=== PATIENT | female | born 1990 | race Caucasian/White ===

== ENCOUNTER → 2017-03-29 | Outpatient (CLI) | payer OTHER ==
[~2017-03-29] MED LIST: OXYC-12 PO; PREN1TAB39 PO
[2017-03-29 10:00] LABS: URINE CREATININE FOR RATIO 40 MG/DL (30-125); URINE PROTEIN FOR RATIO ONLY < 6 MG/DL (6-12)
== END ==
LOC: LABNPT 09:39
PROVIDERS: ATTEND Obstetrics & Gynecology
DX: O14.03 Mild to moderate pre-eclampsia, third trimester (principal)
CPT/HCPCS: 82570; 84156

== ENCOUNTER 2018-06-15 17:10 | Emergency (ER) | payer SELFPAY ==
[~2018-06-15] VITALS: Ht 160 cm; Wt 61.2 kg
[~2018-06-15 17:10] MED LIST changes: +DOCU100C37 PO; +IBUP-1780 PO; +OXYC-465 PO
--- OUTSIDE RECORDS SUMMARY | 2018-06-15 17:45 | XMS REPORT ---
Author Author EVER BELL Organization [facility] Address [address] [place] [address] Care Team Providers Care Vp Customer Service Name Role Phone EVER BELL Unavailable PROBLEMS Type Condition ICD9-CM Code [id number] Code Onset Dates Condition Status SNOMED Code Problem Hypertriglyceridemia without hypercholesterolemia E78.1 Active 399267580 Problem Attention deficit hyperactivity disorder (ADHD), unspecified ADHD type F90.9 Active 856214833 Problem Seasonal allergies J30.2 Active 879056677 Problem Elevated liver enzymes R74.8 Active 027734185 Problem Anxiety F41.9 Active 18999019 Problem Attention deficit hyperactivity disorder (ADHD), combined type F90.2 Active 60596721 Problem Overweight (BMI 25.0-29.9) E66.3 Active 465287370 ALLERGIES No Information ENCOUNTERS Encounter Location Date Diagnosis [facility] [address] [address] Apr, [facility] [address] [place] [address]061[address] Apr, Attention deficit hyperactivity disorder (ADHD), combined type F90.2 [facility] [address] [place] [address] Feb, Attention deficit hyperactivity disorder (ADHD), combined type F90.2 [facility] [address] [place] [address] Feb, Attention deficit hyperactivity disorder (ADHD), combined type F90.2 [facility] [address] [place] [address]87- [address]237 Feb, [facility] [address] [place] [address] 48320- 4286 Jan, Attention deficit hyperactivity disorder (ADHD), combined type F90.2 [facility] [address] [address] Jan, Attention deficit hyperactivity disorder (ADHD), combined type F90.2 [facility] [address] [address] Dec, Attention deficit hyperactivity disorder (ADHD), combined type F90.2 [facility] [address] [address] Nov, Attention deficit hyperactivity disorder (ADHD), combined type F90.2 [facility] [address] [address] Nov, [facility] [id number] [address] Nov, [facility] [id number] [address] Nov, Attention deficit hyperactivity disorder (ADHD), unspecified ADHD type F90.9 [facility] [address] [address] 12 Oct, 2017 Sore throat J02.9 and Seasonal allergies J30.2 [facility] [address] [address] 11 Oct, 2017 Attention deficit hyperactivity disorder (ADHD), unspecified ADHD type F90.9 and Viral pharyngitis J02.9 [facility] [address] [address] Oct, Attention deficit hyperactivity disorder (ADHD), combined type F90.2 [facility] [address] [address] Sep, Attention deficit hyperactivity disorder (ADHD), combined type F90.2 [facility] [address] [address] Aug, Attention deficit hyperactivity disorder (ADHD), combined type F90.2 [facility] [id number] [address] Jul, Attention deficit hyperactivity disorder (ADHD), combined type F90.2 [facility] [id number] [place] [address]397[address] Jul, Attention deficit hyperactivity disorder (ADHD), combined type F90.2 ; Hypertriglyceridemia without hypercholesterolemia E78.1 ; Anxiety F41.9 ; Elevated liver enzymes R74.8 and Overweight (BMI 25.0-29.9) E66.3 [facility] [id number] [place] [address] 45442[address] 68[address] June, Attention deficit hyperactivity disorder (ADHD), combined type F90.2 [facility] [id number] [place] [address] 12738- 68[address] May, Attention deficit hyperactivity disorder (ADHD), combined type F90.2 and Routine health maintenance Z00.00 [facility] [id number] [place] [address] 56087[address] 9[address] Oct, [facility] [id number] [place] [address] 25527- 4559 Oct, Attention deficit hyperactivity disorder (ADHD), combined type F90.2 [facility] [id number] [address] Sep, Attention deficit hyperactivity disorder (ADHD), combined type F90.2 [facility] [address] [address] Aug, Attention deficit hyperactivity disorder (ADHD), combined type F90.2 [facility] [address] [address] 67[address] Jul, Attention deficit hyperactivity disorder (ADHD), combined type F90.2 [facility] [address] [address] June, Attention deficit hyperactivity disorder (ADHD), combined type F90.2 [facility] [id number] [place] [address] 62922- 3[address] June, Attention deficit hyperactivity disorder (ADHD), combined type F90.2 [facility] [id number] [place] [address] 77526- 0449 May, Attention deficit hyperactivity disorder (ADHD), combined type F90.2 [facility] [id number] [place] [address] 59459- 3258 May, Encounter for test, result unknown Z32.00 [facility] [address] [address] Apr, Attention deficit hyperactivity disorder (ADHD), combined type F90.2 [facility] [address] [address] Mar, Attention deficit hyperactivity disorder (ADHD), combined type F90.2 [facility] [id number] [place] [address] 39921- 7318 Feb, Attention deficit hyperactivity disorder (ADHD), combined type F90.2 [facility] [id number] [place] [address] 23274- 0036 Jan, [facility] [address] [address] Jan, [facility] [id number] [place] [address] 92503- 9217 Dec, [facility] [id number] [place] [address]462 [address] Dec, Acute middle ear effusion, right H65.191 [facility] [id number] [place] [address] 29109- 2475 Nov, [facility] [address] [address] Nov, Sore throat J02.9 [facility] [id number] [place] [address]75 [address]4 Nov, Right otitis media, unspecified chronicity, unspecified otitis media type H66.91 [place] [id number] [place] [address] 74499- 3240 Nov, Attention deficit hyperactivity disorder (ADHD), combined type F90.2 and Anxiety F41.[address] [address] Oct, Attention deficit hyperactivity disorder (ADHD), combined type F90.2 and High risk medication use Z79.[address] [address]- [address] Oct, Attention deficit hyperactivity disorder (ADHD), combined type F90.2 [facility] [address] [address] Sep, Seasonal allergic rhinitis due to pollen J30.[address] [address] Sep, Routine health maintenance Z00.00 ; Attention deficit hyperactivity disorder (ADHD), combined type F90.2 ; Anxiety F41.9 and Controlled substance agreement signed Z79.899 [facility] [place] [address] [address] Aug, Mild intermittent asthma without complication J45.20 [facility] [address] [address] Aug, Bronchitis J40 [facility] [address] [address] May, Other pruritus L29.8 and Exposure to strep throat Z20.[address] [address]99 Jan, [address] [address]85 Jan, [address] [address] Aug, [facility] [address] [facility] [id number] [address] June, [facility] [address] [facility] [id number] [address] Apr, [facility] [address] [facility] [id number] [address] Dec, [facility] [address] [facility] [id number] [place] [address] Dec, [facility] [address] [facility] [id number] [place] [address] Oct, IMMUNIZATIONS No Known Immunizations SOCIAL HISTORY Never Assessed REASON FOR VISIT Controlled med refill PLAN OF CARE VITAL SIGNS MEDICATIONS Medication Instructions Dosage Frequency Start Date End Date Duration Status Adderall 10 mg Orally twice a day 1 tablet in the morning then one tablet around noon or 1 pm. 12Apr, 28 days Active RESULTS No Results PROCEDURES No Known procedures INSTRUCTIONS MEDICATIONS ADMINISTERED No Known Medications MEDICAL (GENERAL) HISTORY Type Description Date Medical History ADHD Medical History Asthma- allergy induced Medical History Seasonal allergies Surgical History No know Surgical history Hospitalization History labor and delivery x 1 2011 Hospitalization History labor and delivery 2018
--- OUTSIDE RECORDS SUMMARY | 2018-06-15 17:46 | XMS REPORT ---
Author Author DEEJAY MANCUSO Organization [facility] Address [address] [place] [address] Care Team Providers Care Crew Boss Name Role Phone DEEJAY MANCUSO Unavailable PROBLEMS Type Condition ICD9-CM Code FVJ33-HD Code Onset Dates Condition Status SNOMED Code Problem Hypertriglyceridemia without hypercholesterolemia E78.1 Active 142862127 Problem Seasonal allergies J30.2 Active 101395198 Problem Attention deficit hyperactivity disorder (ADHD), unspecified ADHD type F90.9 Active 767156149 Problem Anxiety F41.9 Active 43763309 Problem Elevated liver enzymes R74.8 Active 523280263 Problem Overweight (BMI 25.0-29.9) E66.3 Active 301279570 Problem Attention deficit hyperactivity disorder (ADHD), combined type F90.2 Active 70868031 ALLERGIES No Information ENCOUNTERS Encounter Location Date Diagnosis [facility] [id number] [place] [address] 16987- 4412 Dec, Attention deficit hyperactivity disorder (ADHD), combined type F90.2 [facility] [id number] [place] [address] 73071- 2002 Nov, Attention deficit hyperactivity disorder (ADHD), combined type F90.2 [facility] [id number] [place] [address] 51997- 0919 Nov, [facility] [id number] [place] [address] 58714- 1500 Nov, [facility] [id number] [place] [address] 26901- 2065 Nov, Attention deficit hyperactivity disorder (ADHD), unspecified ADHD type F90.9 [facility] [id number] [place] [address] 81768 -[address]888 Oct, Sore throat J02.9 and Seasonal allergies J30.2 [facility] [address] [place] [address] 78966- 1689 11 Oct, 2017 Attention deficit hyperactivity disorder (ADHD), unspecified ADHD type F90.9 and Viral pharyngitis J02.9 [facility] [id number] [place] [address] 61941- 4417 10 Oct, 2017 Attention deficit hyperactivity disorder (ADHD), combined type F90.2 [facility] [id number] [place] [address] 20369- 0322 Sep, Attention deficit hyperactivity disorder (ADHD), combined type F90.2 [place] [id number] [place] [address] 73832- 3507 Aug, Attention deficit hyperactivity disorder (ADHD), combined type F90.2 [place] [id number] [place] [address] 92970- 1399 Jul, Attention deficit hyperactivity disorder (ADHD), combined type F90.2 [place] [id number] [place] [address] 14912- 8805 Jul, Attention deficit hyperactivity disorder (ADHD), combined type F90.2 ; Hypertriglyceridemia without hypercholesterolemia E78.1 ; Anxiety F41.9 ; Elevated liver enzymes R74.8 and Overweight (BMI 25.0-29.9) E66.3 [place] [id number] [place] [address] 49067- 5417 June, Attention deficit hyperactivity disorder (ADHD), combined type F90.2 [place] [address] [place] [address] 36511- 4445 May, Attention deficit hyperactivity disorder (ADHD), combined type F90.2 and Routine health maintenance Z00.00 [facility] [id number] [place] [address] 90372- 2824 Oct, [place] [id number] [place] [address] 49944- 4090 Oct, Attention deficit hyperactivity disorder (ADHD), combined type F90.2 [facility] [address] [address] Sep, Attention deficit hyperactivity disorder (ADHD), combined type F90.2 [facility] [address] [address]227 Aug, Attention deficit hyperactivity disorder (ADHD), combined type F90.2 [facility] [id number] [place] [address] Jul, Attention deficit hyperactivity disorder (ADHD), combined type F90.2 [facility] [id number] [place] [address]- 0949 June, Attention deficit hyperactivity disorder (ADHD), combined type F90.2 [facility] [address] [address] June, Attention deficit hyperactivity disorder (ADHD), combined type F90.2 [facility] [address] [address]- 5748 May, Attention deficit hyperactivity disorder (ADHD), combined type F90.2 [facility] [address] [address]- 9[address] May, Encounter for test, result unknown Z32.00 [facility] [id number] [address]- 7[address] Apr, Attention deficit hyperactivity disorder (ADHD), combined type F90.2 [facility] [address] [address]- 6632 Mar, Attention deficit hyperactivity disorder (ADHD), combined type F90.2 [facility] [address] [address]- 8458 Feb, Attention deficit hyperactivity disorder (ADHD), combined type F90.2 [facility] [address] [address]- 5865 Jan, [facility] [address] [place] [address] 37872- 2752 Jan, [place] [id number] [place] [address] 46434- 7823 Dec, [facility] [id number] [place] [address] 76955 -6631 Dec, Acute middle ear effusion, right H65.191 [place] [id number] [place] [address] 36441- 9350 Nov, [facility] [place] [address] [address] Nov, Sore throat J02.9 [facility] [place] [id number] [place] [address] 42776 -9212 Nov, Right otitis media, unspecified chronicity, unspecified otitis media type H66.91 [place] [id number] [place] [address] 27695- 4250 Nov, Attention deficit hyperactivity disorder (ADHD), combined type F90.2 and Anxiety F41.9 [place] [id number] [place] [address] 53568- 7335 Oct, Attention deficit hyperactivity disorder (ADHD), combined type F90.2 and High risk medication use Z79.899 [place] [id number] [place] [address] 13540- 3003 Oct, Attention deficit hyperactivity disorder (ADHD), combined type F90.2 [facility] N [address] [place] [address] 33195 -6743 Sep, Seasonal allergic rhinitis due to pollen J30.1 [place] [address] [place] [address] 85338- 0347 Sep, Routine health maintenance Z00.00 ; Attention deficit hyperactivity disorder (ADHD), combined type F90.2 ; Anxiety F41.9 and Controlled substance agreement signed Z79.899 [facility] [address] [place] [address] 11959 -3753 Aug, Mild intermittent asthma without complication J45.20 [facility] [id number] [place] [address] 49641 -5018 Aug, Bronchitis J40 [facility] [id number] [place] [address] 88583 -6852 May, Other pruritus L29.8 and Exposure to strep throat Z20.818 [facility] [id number] [place] [address] 83499- 3231 Jan, [facility] [address] 37[address]- 8330 Jan, [facility] [id number] [place] [address] 09760- 0228 Aug, [facility] [id number] [place] [address] 47051- 6048 June, [facility] [id number] [place] [address] 14852- 8235 Apr, [facility] [id number] [place] [address] 61072- 7054 Dec, [facility] [id number] [place] [address] 70060- 9494 Dec, [facility] [id number] [place] [address] 92167- 5230 Oct, IMMUNIZATIONS No Known Immunizations SOCIAL HISTORY Never Assessed REASON FOR VISIT Controlled 12/21 PLAN OF CARE VITAL SIGNS MEDICATIONS Medication Instructions Dosage Frequency Start Date End Date Duration Status Adderall 10 mg Orally twice a day 1 tablet in the morning then one tablet around noon or 1 pm. 12h Dec, 28 days Active RESULTS No Results PROCEDURES No Known procedures INSTRUCTIONS MEDICATIONS ADMINISTERED No Known Medications MEDICAL (GENERAL) HISTORY Type Description Date Medical History ADHD Medical History Asthma- allergy induced Medical History Seasonal allergies Surgical History No know Surgical history Hospitalization History labor and delivery x 1 2011 Hospitalization History labor and delivery 2018
--- OUTSIDE RECORDS SUMMARY | 2018-06-15 17:46 | XMS REPORT ---
Author Author [facility] Address [address] [place] [address] Care Team Providers Care Program Mgr Name Role Phone CHELYEvans KEITH Unavailable PROBLEMS Type Condition ICD9-CM Code [id number] Code Onset Dates Condition Status SNOMED Code Problem Hypertriglyceridemia without hypercholesterolemia E78.1 Active 155460583 Problem Seasonal allergies J30.2 Active 587877386 Problem Attention deficit hyperactivity disorder (ADHD), unspecified ADHD type F90.9 Active 278377852 Problem Anxiety F41.9 Active 34133760 Problem Elevated liver enzymes R74.8 Active 172413958 Problem Overweight (BMI 25.0-29.9) E66.3 Active 061493592 Problem Attention deficit hyperactivity disorder (ADHD), combined type F90.2 Active 30651893 ALLERGIES No Information ENCOUNTERS Encounter Location Date Diagnosis [facility] [address] [address] Nov, [facility] [address] [id number] [place] [address]181[address] 6872 Nov, [facility] [id number] [place] [address] 8[address]19- 6801 Nov, [facility] [address] [address] Nov, Attention deficit hyperactivity disorder (ADHD), unspecified ADHD type F90.9 [facility] [address] [address] Oct, Sore throat J02.9 and Seasonal allergies J30.2 [facility] [id number] [place] [address] 25819- 0638 Oct, Attention deficit hyperactivity disorder (ADHD), unspecified ADHD type F90.9 and Viral pharyngitis J02.9 [facility] [id number] [address] 10 Oct, 2017 Attention deficit hyperactivity disorder (ADHD), combined type F90.2 [facility] [id number] [address] Sep, Attention deficit hyperactivity disorder (ADHD), combined type F90.2 [facility] [id number] [place] [address] 24498- 1012 Aug, Attention deficit hyperactivity disorder (ADHD), combined type F90.2 [facility] [id number] [place] [address] 46246- 3559 Jul, Attention deficit hyperactivity disorder (ADHD), combined type F90.2 [facility] [id number] [address] Jul, Attention deficit hyperactivity disorder (ADHD), combined type F90.2 ; Hypertriglyceridemia without hypercholesterolemia E78.1 ; Anxiety F41.9 ; Elevated liver enzymes R74.8 and Overweight (BMI 25.0-29.9) E66.3 [facility] [id number] [place] [address] 6[address] June, Attention deficit hyperactivity disorder (ADHD), combined type F90.2 [facility] [address] [address] May, Attention deficit hyperactivity disorder (ADHD), combined type F90.2 and Routine health maintenance Z00.00 [facility] [id number] [address] Oct, [facility] [id number] [place] [address] 17012- 8597 18 Oct, 2016 Attention deficit hyperactivity disorder (ADHD), combined type F90.2 [facility] [id number] [address] Sep, Attention deficit hyperactivity disorder (ADHD), combined type F90.2 [facility] [id number] [address] Aug, Attention deficit hyperactivity disorder (ADHD), combined type F90.2 [facility] [id number] [place] [address] Jul, Attention deficit hyperactivity disorder (ADHD), combined type F90.2 [facility] [id number] [address] June, Attention deficit hyperactivity disorder (ADHD), combined type F90.2 [facility] [id number] [address] June, Attention deficit hyperactivity disorder (ADHD), combined type F90.2 [facility] [id number] [address] May, Attention deficit hyperactivity disorder (ADHD), combined type F90.2 [facility] [id number], [place] [address] May, Encounter for test, result unknown Z32.00 [facility] [id number] [address] Apr, Attention deficit hyperactivity disorder (ADHD), combined type F90.2 [facility] [id number], [place] [address] 275[address] Mar, Attention deficit hyperactivity disorder (ADHD), combined type F90.2 [facility] [id number], [place] [address] Feb, Attention deficit hyperactivity disorder (ADHD), combined type F90.2 [facility] [id number], [place] [address] Jan, [facility] [id number], [place] [address] Jan, [facility] [id number] [place] [address] 41457- 8221 Dec, [facility] [place] [id number] [place] [address]99[address]14 Dec, Acute middle ear effusion, right H65.[address] [place] [id number] [place] [address] 41644- 6116 Nov, [facility] [address] [address] Nov, Sore throat J02.9 [facility] [place] [id number] [place] [address]16 -[address]24 Nov, Right otitis media, unspecified chronicity, unspecified otitis media type H66.91 [place] [id number] [place] [address] 43409- 4853 Nov, Attention deficit hyperactivity disorder (ADHD), combined type F90.2 and Anxiety F41.9 [place] [id number] [place] [address] 24005- 5656 Oct, Attention deficit hyperactivity disorder (ADHD), combined type F90.2 and High risk medication use Z79.899 [place] [id number] [place] [address] 05339- 4696 Oct, Attention deficit hyperactivity disorder (ADHD), combined type F90.2 [facility] [place] [id number] [place] [address]214 -3798 Sep, Seasonal allergic rhinitis due to pollen J30.1 [place] [id number] [place] [address] 87208- 3549 Sep, Routine health maintenance Z00.00 ; Attention deficit hyperactivity disorder (ADHD), combined type F90.2 ; Anxiety F41.9 and Controlled substance agreement signed Z79.899 [facility] [place] [id number] [place] [address] Aug, Mild intermittent asthma without complication J45.20 [facility] [id number], [place] [address] Aug, Bronchitis J40 [facility] [address], [place] [address] May, Other pruritus L29.8 and Exposure to strep throat Z20.818 [facility] [address], [place] [address] Jan, [facility] [id number], [place] [address] 28[address] Jan, [facility] [id number], [place] [address] 3[address] Aug, [facility] [id number] [place] [address] 20311- 8568 June, [facility] [id number] [place] [address] 60088- 2694 Apr, [facility] [id number], [place] [address]- 56[address] Dec, [facility] [id number], [place] [address]- 6[address] Dec, [facility] [id number], [place] [address]- 9170 Oct, IMMUNIZATIONS No Known Immunizations SOCIAL HISTORY Never Assessed REASON FOR VISIT Prior Authorization Request PLAN OF CARE VITAL SIGNS MEDICATIONS Unknown Medications RESULTS No Results PROCEDURES No Known procedures INSTRUCTIONS MEDICATIONS ADMINISTERED No Known Medications MEDICAL (GENERAL) HISTORY Type Description Date Medical History ADHD Medical History Asthma- allergy induced Medical History Seasonal allergies Surgical History No know Surgical history Hospitalization History labor and delivery x 1 2011 Hospitalization History labor and delivery 2018
--- OUTSIDE RECORDS SUMMARY | 2018-06-15 17:46 | XMS REPORT ---
Author Author DEEJAY MANCUSO Organization [facility] Address [address] [place] [address] Care Team Providers Care Sports Commentator Name Role Phone DEEJAY MANCUSO Unavailable PROBLEMS Type Condition ICD9-CM Code [id number] Code Onset Dates Condition Status SNOMED Code Problem Hypertriglyceridemia without hypercholesterolemia E78.1 Active 727082152 Problem Seasonal allergies J30.2 Active 089743675 Problem Attention deficit hyperactivity disorder (ADHD), unspecified ADHD type F90.9 Active 792806388 Problem Anxiety F41.9 Active 02149975 Problem Elevated liver enzymes R74.8 Active 620529016 Problem Overweight (BMI 25.0-29.9) E66.3 Active 379472005 Problem Attention deficit hyperactivity disorder (ADHD), combined type F90.2 Active 25128293 ALLERGIES Substance Reaction Event Type Date Status Penicillin V Potassium rash Drug Allergy Oct, Active ENCOUNTERS Encounter Location Date Diagnosis [facility] [id number] [place] [address] 12 Oct, 2017 Sore throat J02.9 and Seasonal allergies J30.2 [facility] [id number] [place] [address] 99996- 2791 Oct, Attention deficit hyperactivity disorder (ADHD), unspecified ADHD type F90.9 and Viral pharyngitis J02.9 [facility] [address] [place] [address] 39411- 5271 Oct, Attention deficit hyperactivity disorder (ADHD), combined type F90.2 [facility] [address] [place] [address] 09936- 0487 Sep, Attention deficit hyperactivity disorder (ADHD), combined type F90.2 [facility] [id number] [place] [address] 26784- 5775 Aug, Attention deficit hyperactivity disorder (ADHD), combined type F90.2 [facility] [address] [address] 3847 Jul, Attention deficit hyperactivity disorder (ADHD), combined type F90.2 [facility] [address] [address] 8612 Jul, Attention deficit hyperactivity disorder (ADHD), combined type F90.2 ; Hypertriglyceridemia without hypercholesterolemia E78.1 ; Anxiety F41.9 ; Elevated liver enzymes R74.8 and Overweight (BMI 25.0-29.9) E66.3 [facility] [id number] [place] [address] 20471- 5155 June, Attention deficit hyperactivity disorder (ADHD), combined type F90.2 [facility] [address] [address]- 2[address] May, Attention deficit hyperactivity disorder (ADHD), combined type F90.2 and Routine health maintenance Z00.00 [facility] [address] [address]- 45[address] Oct, [facility] [id number] [address]- 1513 Oct, Attention deficit hyperactivity disorder (ADHD), combined type F90.2 [facility] [address] [address]- 3465 Sep, Attention deficit hyperactivity disorder (ADHD), combined type F90.2 [facility] [address] [address]- 5563 Aug, Attention deficit hyperactivity disorder (ADHD), combined type F90.2 [facility] [address] [address]- 2353 Jul, Attention deficit hyperactivity disorder (ADHD), combined type F90.2 [facility] [address] [address]- 0[address] June, Attention deficit hyperactivity disorder (ADHD), combined type F90.2 [facility] [id number] [place] [address] 00143- 2707 June, Attention deficit hyperactivity disorder (ADHD), combined type F90.2 [facility] [id number] [place] [address] 86623- 5540 May, Attention deficit hyperactivity disorder (ADHD), combined type F90.2 [facility] [id number] [place] [address] 01643- 7283 May, Encounter for test, result unknown Z32.00 [place] [address] [address]- [address] Apr, Attention deficit hyperactivity disorder (ADHD), combined type F90.2 [facility] [id number] [place] [address] 36614- 8923 Mar, Attention deficit hyperactivity disorder (ADHD), combined type F90.2 [facility] [id number] [place] [address] 51558- 6014 Feb, Attention deficit hyperactivity disorder (ADHD), combined type F90.2 [facility] [id number] [place] [address] 30365- 5164 Jan, [facility] [id number] [place] [address] 53676- 4391 Jan, [facility] [id number] [place] [address] 32059- 3123 Dec, [facility] [id number] [place] [address] 60769 -8193 Dec, Acute middle ear effusion, right H65.191 [facility] [id number] [place] [address] 66944- 6803 Nov, [facility] [id number] [place] [address] 42328 -7434 Nov, Sore throat J02.9 [facility] [place] [id number] [place] [address] 14937 -8535 Nov, Right otitis media, unspecified chronicity, unspecified otitis media type H66.91 [place] [address] [address]- 9072 Nov, Attention deficit hyperactivity disorder (ADHD), combined type F90.2 and Anxiety F41.[address] [address]- [address] Oct, Attention deficit hyperactivity disorder (ADHD), combined type F90.2 and High risk medication use Z79.[address] 24353- 4973 Oct, Attention deficit hyperactivity disorder (ADHD), combined type F90.2 [facility] [address] [address] Sep, Seasonal allergic rhinitis due to pollen J30.[address] 75359- 3944 Sep, Routine health maintenance Z00.00 ; Attention deficit hyperactivity disorder (ADHD), combined type F90.2 ; Anxiety F41.9 and Controlled substance agreement signed Z79.899 [facility] [address] [address] Aug, Mild intermittent asthma without complication J45.20 [facility] [address] [address] Aug, Bronchitis J40 [facility] [address] [address] -[address]10 May, Other pruritus L29.8 and Exposure to strep throat Z20.[address] 97362- 6383 Jan, [address] 618[address]- 68[address] Jan, [facility] [address] [facility] [id number] [place] [address]- 6326 Aug, [facility] [address] [facility] [id number] [address] 2546 June, [facility] [address] [facility] [id number] [address] 2546 Apr, [facility] [address] [facility] [id number] [address]- 2336 Dec, [facility] [address] [facility] [id number] [place] [address]- 4166 Dec, [facility] [address] [facility] [id number] [place] [address]- 8056 Oct, IMMUNIZATIONS No Known Immunizations SOCIAL HISTORY Never Assessed REASON FOR VISIT Sore throat started 2 days ago [facility] PLAN OF CARE Activity Details Follow Up 1 Week, prn Reason:if symptoms worsen VITAL SIGNS Height 64 in 2017-10-27 Weight 140.4 lbs 2017-10-27 Temperature 98.1 degrees Fahrenheit 2017-10-27 Heart Rate 76 bpm 2017-10-27 Respiratory Rate 18 2017-10-27 BMI 24.10 kg/m2 2017-10-27 Blood pressure systolic 102 mmHg 2017-10-27 Blood pressure diastolic 64 mmHg 2017-10-27 MEDICATIONS Medication Instructions Dosage Frequency Start Date End Date Duration Status Fluticasone Propionate 50 MCG/ACT Nasally Once a day 1 spray in each nostril 24h Oct, 30 day(s) Active Adderall 10 mg Orally twice a day 1 tablet in the morning then one tablet around noon or 1 pm. 12h Oct, 28 days Active Albuterol Sulfate HFA 108 (90 Base) MCG/ACT Inhalation 4 times a day 2 puffs as needed 6h Aug, Active Claritin-D 24 Hour 10-240 MG Orally Once a day 1 tablet as needed 24h Oct, Oct, Active RESULTS Name Result Date Reference Range STREP A (IN HOUSE) 2017-10-27 STREP A negative Control + Lot # [id number] Exp date 2018-01-14 PROCEDURES Procedure Date Ordered Result Body Site STREP A ASSAY W/OPTIC Oct 27, 2017 INSTRUCTIONS MEDICATIONS ADMINISTERED No Known Medications MEDICAL (GENERAL) HISTORY Type Description Date Medical History ADHD Medical History Asthma- allergy induced Medical History Seasonal allergies Surgical History No know Surgical history Hospitalization History labor and delivery x 1 2012 Hospitalization History labor and delivery 2018
--- OUTSIDE RECORDS SUMMARY | 2018-06-15 17:46 | XMS REPORT ---
Author Author DEEJAY MANCUSO Organization [facility] Address [address] [place] [address] Care Team Providers Care Launderer Hand Name Role Phone DEEJAY MANCUSO Unavailable PROBLEMS Type Condition ICD9-CM Code OYQ30-RB Code Onset Dates Condition Status SNOMED Code Problem Hypertriglyceridemia without hypercholesterolemia E78.1 Active 971472437 Problem Seasonal allergies J30.2 Active 987479560 Problem Attention deficit hyperactivity disorder (ADHD), unspecified ADHD type F90.9 Active 306627574 Problem Anxiety F41.9 Active 54435768 Problem Elevated liver enzymes R74.8 Active 200465699 Problem Overweight (BMI 25.0-29.9) E66.3 Active 711976158 Problem Attention deficit hyperactivity disorder (ADHD), combined type F90.2 Active 04579347 ALLERGIES No Information ENCOUNTERS Encounter Location Date Diagnosis [facility] [id number] [place] [address] 48743- 3481 Jan, Attention deficit hyperactivity disorder (ADHD), combined type F90.2 [facility] [id number] [place] [address] 51677- 5109 Dec, Attention deficit hyperactivity disorder (ADHD), combined type F90.2 [facility] [id number] [place] [address] 99534- 5661 Nov, Attention deficit hyperactivity disorder (ADHD), combined type F90.2 [facility] [id number] [place] [address] 17957- 0634 Nov, [facility] [id number] [place] [address] 88502- 2497 Nov, [facility] [id number] [place] [address] 88178- 6876 Nov, Attention deficit hyperactivity disorder (ADHD), unspecified ADHD type F90.9 [facility] [address] [address] 12 Oct, 2017 Sore throat J02.9 and Seasonal allergies J30.2 [facility] [id number] [place] [address] 67167- 9039 11 Oct, 2017 Attention deficit hyperactivity disorder (ADHD), unspecified ADHD type F90.9 and Viral pharyngitis J02.9 [facility] [id number] [place] [address] 81160- 2928 10 Oct, 2017 Attention deficit hyperactivity disorder (ADHD), combined type F90.2 [facility] [id number] [place] [address] 35440- 9648 13 Sep, 2017 Attention deficit hyperactivity disorder (ADHD), combined type F90.2 [facility] [id number] [place] [address] 71191- 4553 16 Aug, 2017 Attention deficit hyperactivity disorder (ADHD), combined type F90.2 [facility] [id number] [place] [address] 66413- 7693 15 Jul, 2017 Attention deficit hyperactivity disorder (ADHD), combined type F90.2 [facility] [id number] [place] [address] 27247- 3472 12 Jul, 2017 Attention deficit hyperactivity disorder (ADHD), combined type F90.2 ; Hypertriglyceridemia without hypercholesterolemia E78.1 ; Anxiety F41.9 ; Elevated liver enzymes R74.8 and Overweight (BMI 25.0-29.9) E66.3 [facility] [address] [place] [address] 15204- 0824 June, Attention deficit hyperactivity disorder (ADHD), combined type F90.2 [facility] [id number] [place] [address] 06482- 2300 May, Attention deficit hyperactivity disorder (ADHD), combined type F90.2 and Routine health maintenance Z00.00 [facility] [id number] [address] 47[address] Oct, [facility] [address] [address] 18 Oct, 2016 Attention deficit hyperactivity disorder (ADHD), combined type F90.2 [facility] [address] [address] 4[address] 14 Sep, 2016 Attention deficit hyperactivity disorder (ADHD), combined type F90.2 [facility] [id number] [address] Aug, Attention deficit hyperactivity disorder (ADHD), combined type F90.2 [facility] [id number] [place] [address] 98011- 8841 Jul, Attention deficit hyperactivity disorder (ADHD), combined type F90.2 [facility] [address] [address] 7947 June, Attention deficit hyperactivity disorder (ADHD), combined type F90.2 [facility] [address] [address] June, Attention deficit hyperactivity disorder (ADHD), combined type F90.2 [facility] [address] [address] 2015 May, Attention deficit hyperactivity disorder (ADHD), combined type F90.2 [facility] [address] [address] 5[address] May, Encounter for test, result unknown Z32.00 [facility] [address] [address]15 Apr, Attention deficit hyperactivity disorder (ADHD), combined type F90.2 [facility] [address] [address] 1421 Mar, Attention deficit hyperactivity disorder (ADHD), combined type F90.2 [facility] [address] [address] 59[address] Feb, Attention deficit hyperactivity disorder (ADHD), combined type F90.2 [place] [id number] [place] [address] 97533- 1266 Jan, [facility] [id number] [place] [address] 36336- 8452 Jan, [place] [address] [address]- [address]122 Dec, [facility] [address] [address] Dec, Acute middle ear effusion, right H65.191 [place] [address] 23447- 2918 Nov, [facility] [place] [address] 84256 -2804 Nov, Sore throat J02.9 [facility] [place] [id number] [place] [address] 53318 -1500 Nov, Right otitis media, unspecified chronicity, unspecified otitis media type H66.91 [place] [id number] [place] [address] 16041- 4103 Nov, Attention deficit hyperactivity disorder (ADHD), combined type F90.2 and Anxiety F41.9 [place] [id number] [place] [address] 68747- 4105 Oct, Attention deficit hyperactivity disorder (ADHD), combined type F90.2 and High risk medication use Z79.899 [place] [id number] [place] [address] 96946- 3020 Oct, Attention deficit hyperactivity disorder (ADHD), combined type F90.2 [facility] [id number] [place] [address] 38875 -6787 Sep, Seasonal allergic rhinitis due to pollen J30.1 [place] [id number] [place] [address] 74835- 8995 Sep, Routine health maintenance Z00.00 ; Attention deficit hyperactivity disorder (ADHD), combined type F90.2 ; Anxiety F41.9 and Controlled substance agreement signed Z79.899 [facility] [id number] [place] [address] 44412 -7164 Aug, Mild intermittent asthma without complication J45.20 [facility] [address] [address] Aug, Bronchitis J40 [facility] [id number] [place] [address] 62200 -7208 May, Other pruritus L29.8 and Exposure to strep throat Z20.818 [facility] [id number] [place] [address] 93865- 4181 Jan, [place] [address] 92095- 0066 Jan, [facility] [id number] [place] [address] 03072- 9161 Aug, [place] [id number] [place] [address] 37482- 3903 June, [place] [id number] [place] [address] 43198- 0661 Apr, [place] [id number] [place] [address] 17178- 4173 Dec, [place] [id number] [place] [address] 88741- 4548 Dec, [place] [id number] [place] [address] [id number]- 8953 Oct, IMMUNIZATIONS No Known Immunizations SOCIAL HISTORY Never Assessed REASON FOR VISIT Controlled Refill 01/19 PLAN OF CARE VITAL SIGNS MEDICATIONS Medication Instructions Dosage Frequency Start Date End Date Duration Status Adderall 10 mg Orally twice a day 1 tablet in the morning then one tablet around noon or 1 pm. 12Jan, 28 days Active RESULTS No Results PROCEDURES No Known procedures INSTRUCTIONS MEDICATIONS ADMINISTERED No Known Medications MEDICAL (GENERAL) HISTORY Type Description Date Medical History ADHD Medical History Asthma- allergy induced Medical History Seasonal allergies Surgical History No know Surgical history Hospitalization History labor and delivery x 1 2012 Hospitalization History labor and delivery 2018
--- OUTSIDE RECORDS SUMMARY | 2018-06-15 17:46 | XMS REPORT ---
Author Author DEEJAY MANCUSO [facility] Address [address] [place] [address] Care Team Providers Care Squeegee Operator Name Role Phone DEEJAY MANCUSO Unavailable PROBLEMS Type Condition ICD9-CM Code UYM01-WH Code Onset Dates Condition Status SNOMED Code Problem Hypertriglyceridemia without hypercholesterolemia E78.1 Active 645381916 Problem Seasonal allergies J30.2 Active 288227748 Problem Attention deficit hyperactivity disorder (ADHD), unspecified ADHD type F90.9 Active 137473071 Problem Anxiety F41.9 Active 37739099 Problem Elevated liver enzymes R74.8 Active 575649466 Problem Overweight (BMI 25.0-29.9) E66.3 Active 075655911 Problem Attention deficit hyperactivity disorder (ADHD), combined type F90.2 Active 84976242 ALLERGIES Substance Reaction Event Type Date Status Penicillin V Potassium rash Drug Allergy Nov, Active ENCOUNTERS Encounter Location Date Diagnosis [facility] [address] [address] Nov, Attention deficit hyperactivity disorder (ADHD), combined type F90.2 [facility] [id number] [place] [address] 83994- 1109 Nov, [facility] [id number] [place] [address] 72788- 9239 Nov, [facility] [id number] [place] [address] 81750- 5300 Nov, Attention deficit hyperactivity disorder (ADHD), unspecified ADHD type F90.9 [facility] [id number] [place] [address] 44539 -5510 Oct, Sore throat J02.9 and Seasonal allergies J30.2 [facility] [id number] [place] [address] 41440- 9101 11 Oct, 2017 Attention deficit hyperactivity disorder (ADHD), unspecified ADHD type F90.9 and Viral pharyngitis J02.9 [place] [id number] [place] [address] 67412- 9163 10 Oct, 2017 Attention deficit hyperactivity disorder (ADHD), combined type F90.2 [place] [id number] [place] [address] 42134- 9581 Sep, Attention deficit hyperactivity disorder (ADHD), combined type F90.2 [place] [id number] [place] [address] 29040- 7587 Aug, Attention deficit hyperactivity disorder (ADHD), combined type F90.2 [place] [id number] [place] [address] 75929- 7093 15 Jul, 2017 Attention deficit hyperactivity disorder (ADHD), combined type F90.2 [place] [id number] [place] [address] 47311- 9867 Jul, Attention deficit hyperactivity disorder (ADHD), combined type F90.2 ; Hypertriglyceridemia without hypercholesterolemia E78.1 ; Anxiety F41.9 ; Elevated liver enzymes R74.8 and Overweight (BMI 25.0-29.9) E66.3 [place] [id number] [place] [address] 39729- 3276 June, Attention deficit hyperactivity disorder (ADHD), combined type F90.2 [place] [id number] [place] [address] 48842- 3504 May, Attention deficit hyperactivity disorder (ADHD), combined type F90.2 and Routine health maintenance Z00.00 [place] [id number] [place] [address] 96678- 9526 Oct, [place] [id number] [place] [address] 06691- 8514 18 Oct, 2016 Attention deficit hyperactivity disorder (ADHD), combined type F90.2 [place] [address] [address]- 9087 Sep, Attention deficit hyperactivity disorder (ADHD), combined type F90.2 [facility] [id number] [address]- 8895 Aug, Attention deficit hyperactivity disorder (ADHD), combined type F90.2 [facility] [address] [address]- 1191 Jul, Attention deficit hyperactivity disorder (ADHD), combined type F90.2 [facility] [id number] [place] [address] 52594- 3364 June, Attention deficit hyperactivity disorder (ADHD), combined type F90.2 [facility] [id number] [place] [address] 64455- 7473 June, Attention deficit hyperactivity disorder (ADHD), combined type F90.2 [facility] [id number] [place] [address] 64225- 7360 May, Attention deficit hyperactivity disorder (ADHD), combined type F90.2 [facility] [id number] [address]- 8518 May, Encounter for test, result unknown Z32.00 [facility] [address] [address]- 4590 Apr, Attention deficit hyperactivity disorder (ADHD), combined type F90.2 [facility] [address] [address]- 1153 Mar, Attention deficit hyperactivity disorder (ADHD), combined type F90.2 [facility] [address] [address]- 6632 Feb, Attention deficit hyperactivity disorder (ADHD), combined type F90.2 [facility] [address] [address]- 4[address] Jan, [facility] [id number] [place] [address] 41577- 1208 Jan, [place] [id number] [place] [address] 22086- 2548 Dec, [facility] [place] [id number] [place] [address] 66593 -9367 Dec, Acute middle ear effusion, right H65.[address] [address]64- 2362 Nov, [facility] IN [address] [address]194 Nov, Sore throat J02.9 [facility] IN [address] [address] -[address]66 Nov, Right otitis media, unspecified chronicity, unspecified otitis media type H66.[address] 28568- 6797 Nov, Attention deficit hyperactivity disorder (ADHD), combined type F90.2 and Anxiety F41.[address] [address]53- 9132 Oct, Attention deficit hyperactivity disorder (ADHD), combined type F90.2 and High risk medication use Z79.[address] 96920- 9351 Oct, Attention deficit hyperactivity disorder (ADHD), combined type F90.2 [facility] [place] [id number] [place] [address] 60439 -1144 Sep, Seasonal allergic rhinitis due to pollen J30.[address] 55576- 9111 Sep, Routine health maintenance Z00.00 ; Attention deficit hyperactivity disorder (ADHD), combined type F90.2 ; Anxiety F41.9 and Controlled substance agreement signed Z79.899 [facility] IN [address] [address] -[address]275 Aug, Mild intermittent asthma without complication J45.20 [facility] [id number] [place] [address] 66574 -6696 Aug, Bronchitis J40 [facility] IN [facility] [id number] [place] [address] 44337 -8383 May, Other pruritus L29.8 and Exposure to strep throat Z20.818 [facility] [address] [address]- [address] Jan, [facility] [id number] [place] [address] 15997- 1065 Jan, [facility] [address] 07781- 6157 Aug, [facility] [id number] [place] [address] 72363- 4256 June, [facility] [id number] [place] [address] 69194- 0338 Apr, [facility] [id number] [place] [address] 50566- 9781 Dec, [facility] [id number] [place] [address] 45228- 4852 Dec, [facility] [id number] [place] [address] 47351- 1420 Oct, IMMUNIZATIONS No Known Immunizations SOCIAL HISTORY Never Assessed REASON FOR VISIT New provider visit Evan GILL PLAN OF CARE Activity Details Follow Up w/ PCP, 6 Months Reason:routine f/u VITAL SIGNS Height 64 in 2017-12-14 Weight 131.0 lbs 2017-12-14 Temperature 97.9 degrees Fahrenheit 2017-12-14 Heart Rate 84 bpm 2017-12-14 Respiratory Rate 20 2017-12-14 BMI 22.48 kg/m2 2017-12-14 Blood pressure systolic 102 mmHg 2017-12-14 Blood pressure diastolic 68 mmHg 2017-12-14 MEDICATIONS Medication Instructions Dosage Frequency Start Date End Date Duration Status Albuterol Sulfate HFA 108 (90 Base) MCG/ACT Inhalation 4 times a day 2 puffs as needed 6h 27 Aug, 2015 Active Adderall 10 mg Orally twice a day 1 tablet in the morning then one tablet around noon or 1 pm. 12h Nov, Active Fluticasone Propionate 50 MCG/ACT Nasally Once a day 1 spray in each nostril 24h Oct, 30 day(s) Active RESULTS No Results PROCEDURES No Known procedures INSTRUCTIONS MEDICATIONS ADMINISTERED No Known Medications MEDICAL (GENERAL) HISTORY Type Description Date Medical History ADHD Medical History Asthma- allergy induced Medical History Seasonal allergies Surgical History No know Surgical history Hospitalization History labor and delivery x 1 2011 Hospitalization History labor and delivery 2018
--- OUTSIDE RECORDS SUMMARY | 2018-06-15 17:47 | XMS REPORT ---
Author Author GODWINDEL Fraga Organization [facility] Address [address] [place] [address] Care Team Providers Care Housekeeping Manager Name Role Phone DEL GODWIN Unavailable PROBLEMS Type Condition ICD9-CM Code CSY17-BP Code Onset Dates Condition Status SNOMED Code Problem Hypertriglyceridemia without hypercholesterolemia E78.1 Active 299033142 Problem Seasonal allergies J30.2 Active 563771753 Problem Attention deficit hyperactivity disorder (ADHD), unspecified ADHD type F90.9 Active 142382578 Problem Anxiety F41.9 Active 77607045 Problem Elevated liver enzymes R74.8 Active 077392931 Problem Overweight (BMI 25.0-29.9) E66.3 Active 942715744 Problem Attention deficit hyperactivity disorder (ADHD), combined type F90.2 Active 43810403 ALLERGIES No Information ENCOUNTERS Encounter Location Date Diagnosis [facility] WALK IN [facility] [id number] [place] [address] 65629 -8114 12 Oct, 2017 Sore throat J02.9 and Seasonal allergies J30.2 [facility] [id number] [place] [address] 68414- 0766 11 Oct, 2017 Attention deficit hyperactivity disorder (ADHD), unspecified ADHD type F90.9 and Viral pharyngitis J02.9 [facility] [id number] [place] [address] 81725- 2833 10 Oct, 2017 Attention deficit hyperactivity disorder (ADHD), combined type F90.2 [facility] [id number] [place] [address] 09548- 3624 13 Sep, 2017 Attention deficit hyperactivity disorder (ADHD), combined type F90.2 [facility] [id number] [place] [address] 30898- 5227 Aug, Attention deficit hyperactivity disorder (ADHD), combined type F90.2 [facility] [address] [address] Jul, Attention deficit hyperactivity disorder (ADHD), combined type F90.2 [facility] [address] [address] Jul, Attention deficit hyperactivity disorder (ADHD), combined type F90.2 ; Hypertriglyceridemia without hypercholesterolemia E78.1 ; Anxiety F41.9 ; Elevated liver enzymes R74.8 and Overweight (BMI 25.0-29.9) E66.3 [facility] [address] [address] June, Attention deficit hyperactivity disorder (ADHD), combined type F90.2 [facility] [address] [address] 5[address] May, Attention deficit hyperactivity disorder (ADHD), combined type F90.2 and Routine health maintenance Z00.00 [facility] [address] [address] 6[address] Oct, [facility] [id number] [place] [address] 74962- 7274 Oct, Attention deficit hyperactivity disorder (ADHD), combined type F90.2 [facility] [address] [address] 12[address] Sep, Attention deficit hyperactivity disorder (ADHD), combined type F90.2 [facility] [address] [address] 23[address] Aug, Attention deficit hyperactivity disorder (ADHD), combined type F90.2 [facility] [address] [address] 4[address] Jul, Attention deficit hyperactivity disorder (ADHD), combined type F90.2 [facility] [address] [address] 68[address] June, Attention deficit hyperactivity disorder (ADHD), combined type F90.2 [place] [id number] [place] [address] 64256- 0381 June, Attention deficit hyperactivity disorder (ADHD), combined type F90.2 [facility] [id number] [place] [address] 91077- 5414 May, Attention deficit hyperactivity disorder (ADHD), combined type F90.2 [place] [address] 6[address]63- 9999 May, Encounter for test, result unknown Z32.00 [facility] [address] 31276- 7154 Apr, Attention deficit hyperactivity disorder (ADHD), combined type F90.2 [facility] [id number] [place] [address] 65967- 9537 Mar, Attention deficit hyperactivity disorder (ADHD), combined type F90.2 [place] [address] [address]37- 7995 Feb, Attention deficit hyperactivity disorder (ADHD), combined type F90.2 [place] [address] 29838- 2562 Jan, [facility] [id number] [place] [address] 24673- 7165 Jan, [place] [id number] [place] [address] 45463- 3096 Dec, [facility] [id number] [place] [address]01 [address] Dec, Acute middle ear effusion, right H65.191 [facility] [address] 15506- 1840 Nov, [facility] [id number] [place] [address] 36329 -1537 Nov, Sore throat J02.9 [facility] [address] 83613 -5642 Nov, Right otitis media, unspecified chronicity, unspecified otitis media type H66.91 [place] [address] 75993- 1740 Nov, Attention deficit hyperactivity disorder (ADHD), combined type F90.2 and Anxiety F41.9 [place] [address] 13364- 9040 Oct, Attention deficit hyperactivity disorder (ADHD), combined type F90.2 and High risk medication use Z79.899 [place] [address] 88979- 1493 Oct, Attention deficit hyperactivity disorder (ADHD), combined type F90.2 [facility] WALK IN [place] [address] 91159 -4188 Sep, Seasonal allergic rhinitis due to pollen J30.1 [place] [address] 55136- 5404 Sep, Routine health maintenance Z00.00 ; Attention deficit hyperactivity disorder (ADHD), combined type F90.2 ; Anxiety F41.9 and Controlled substance agreement signed Z79.899 [facility] WALK IN [place] [id number] [place] [address] 67749 -4856 Aug, Mild intermittent asthma without complication J45.20 [facility] WALK [place] [id number] [place] [address] 93031 -8890 Aug, Bronchitis J40 [facility] WALK IN [address] 6[address]6413 May, Other pruritus L29.8 and Exposure to strep throat Z20.818 [place] [id number] [place] [address] 33718- 4043 Jan, [place] [id number] [place] [address] 87347- 3949 Jan, [place] [address] [address]- 2546 Aug, [facility] [id number] [address] 25[address] June, [facility] [address] [address]- 2546 Apr, [facility] [address] [address]- 2546 Dec, [facility] [address] [address]- 2546 Dec, [facility] [address] [address] 5576 Oct, IMMUNIZATIONS No Known Immunizations SOCIAL HISTORY Never Assessed REASON FOR VISIT Controlled Med Refill PLAN OF CARE VITAL SIGNS MEDICATIONS Medication Instructions Dosage Frequency Start Date End Date Duration Status Adderall 10 mg Orally twice a day 1 tablet in the morning then one tablet around noon or 1 pm. 12Sep, 28 days Active RESULTS No Results PROCEDURES No Known procedures INSTRUCTIONS MEDICATIONS ADMINISTERED No Known Medications MEDICAL (GENERAL) HISTORY Type Description Date Medical History ADHD Medical History Asthma- allergy induced Medical History Seasonal allergies Surgical History No know Surgical history Hospitalization History labor and delivery x 1 2011 Hospitalization History labor and delivery 2018
--- OUTSIDE RECORDS SUMMARY | 2018-06-15 17:47 | XMS REPORT ---
Author Author TATODEL [facility] Address [address] [place] [address] Care Team Providers Care Green Chain Operator Name Role Phone DEL GODWIN Unavailable PROBLEMS Type Condition ICD9-CM Code XAJ11-FY Code Onset Dates Condition Status SNOMED Code Problem Hypertriglyceridemia without hypercholesterolemia E78.1 Active 536375750 Problem Seasonal allergies J30.2 Active 838953713 Problem Attention deficit hyperactivity disorder (ADHD), unspecified ADHD type F90.9 Active 059199493 Problem Anxiety F41.9 Active 58133875 Problem Elevated liver enzymes R74.8 Active 437891466 Problem Overweight (BMI 25.0-29.9) E66.3 Active 832623866 Problem Attention deficit hyperactivity disorder (ADHD), combined type F90.2 Active 62596221 ALLERGIES Substance Reaction Event Type Date Status Penicillin V Potassium rash Drug Allergy Oct, Active ENCOUNTERS Encounter Location Date Diagnosis [facility] IN [facility] [address] [place] [address] 25866 -1464 12 Oct, 2017 Sore throat J02.9 and Seasonal allergies J30.2 [facility] [id number] [place] [address] 33765- 5738 Oct, Attention deficit hyperactivity disorder (ADHD), unspecified ADHD type F90.9 and Viral pharyngitis J02.9 [facility] [id number] [place] [address] 63094- 2638 10 Oct, 2017 Attention deficit hyperactivity disorder (ADHD), combined type F90.2 [facility] [address] [place] [address] 75420- 9514 Sep, Attention deficit hyperactivity disorder (ADHD), combined type F90.2 [facility] [id number] [place] [address] 68132- 0908 Aug, Attention deficit hyperactivity disorder (ADHD), combined type F90.2 [facility] [address], [place] [address]- 3567 Jul, Attention deficit hyperactivity disorder (ADHD), combined type F90.2 [facility] [address], [place] [address]- 1472 Jul, Attention deficit hyperactivity disorder (ADHD), combined type F90.2 ; Hypertriglyceridemia without hypercholesterolemia E78.1 ; Anxiety F41.9 ; Elevated liver enzymes R74.8 and Overweight (BMI 25.0-29.9) E66.3 [facility] [id number] [place] [address] 42774- 8530 June, Attention deficit hyperactivity disorder (ADHD), combined type F90.2 [facility] [address], [place] [address]- 0464 May, Attention deficit hyperactivity disorder (ADHD), combined type F90.2 and Routine health maintenance Z00.00 [facility] [address], [place] [address]- 7210 Oct, [facility] [id number] [address]- 7055 Oct, Attention deficit hyperactivity disorder (ADHD), combined type F90.2 [facility] [address], [place] [address]- 9225 Sep, Attention deficit hyperactivity disorder (ADHD), combined type F90.2 [facility] [address], [place] [address]- 9260 Aug, Attention deficit hyperactivity disorder (ADHD), combined type F90.2 [facility] [address], [place] [address]- 9648 Jul, Attention deficit hyperactivity disorder (ADHD), combined type F90.2 [facility] [address], [place] [address]- 4158 June, Attention deficit hyperactivity disorder (ADHD), combined type F90.2 [facility] [address], [place] [address]- 9892 June, Attention deficit hyperactivity disorder (ADHD), combined type F90.2 [facility] [id number] [address]- 5267 May, Attention deficit hyperactivity disorder (ADHD), combined type F90.2 [facility] [id number] [place] [address] 84748- 3552 May, Encounter for test, result unknown Z32.00 [facility] [address] 79756- 9764 Apr, Attention deficit hyperactivity disorder (ADHD), combined type F90.2 [facility] [id number] [place] [address] 04178- 0936 Mar, Attention deficit hyperactivity disorder (ADHD), combined type F90.2 [facility] [id number] [place] [address] 64217- 4427 Feb, Attention deficit hyperactivity disorder (ADHD), combined type F90.2 [facility] [id number] [place] [address] 58626- 7594 Jan, [facility] [id number] [place] [address] 18703- 8937 Jan, [facility] [id number] [place] [address] 42853- 3730 Dec, [facility] [id number] [place] [address] 94554 -9366 Dec, Acute middle ear effusion, right H65.191 [facility] [id number] [place] [address] 20878- 1733 Nov, [facility] [id number] [place] [address] 93503 -4413 Nov, Sore throat J02.9 [facility] CARE [id number] [place] [address] 02613 -1105 Nov, Right otitis media, unspecified chronicity, unspecified otitis media type H66.91 [place] [address] 96194- 8724 Nov, Attention deficit hyperactivity disorder (ADHD), combined type F90.2 and Anxiety F41.[address] 6[address]- 5368 Oct, Attention deficit hyperactivity disorder (ADHD), combined type F90.2 and High risk medication use Z79.[address] 43149- 4267 Oct, Attention deficit hyperactivity disorder (ADHD), combined type F90.2 [facility] [address] [address] -0548 Sep, Seasonal allergic rhinitis due to pollen J30.[address] 89101- 3137 Sep, Routine health maintenance Z00.00 ; Attention deficit hyperactivity disorder (ADHD), combined type F90.2 ; Anxiety F41.9 and Controlled substance agreement signed Z79.899 [facility] [place] [id number] [place] [address] 06613 -1476 Aug, Mild intermittent asthma without complication J45.20 [facility] [place] [id number] [place] [address] 95424 -6726 Aug, Bronchitis J40 [facility] [address] 68409 -9766 May, Other pruritus L29.8 and Exposure to strep throat Z20.[address] 45660- 3903 Jan, [address] 72294- 5461 Jan, [facility] [address] [facility] [id number] [address]- 2346 Aug, [facility] [id number] [address]- 4956 June, [facility] [address] [facility] [id number], [place] [address] 2546 Apr, [facility] [address], [place] [address]- 0796 Dec, [facility] [address] [facility] [id number] [address]- 8606 Dec, [facility] [address], [place] [address]- 0896 Oct, IMMUNIZATIONS No Known Immunizations SOCIAL HISTORY Never Assessed REASON FOR VISIT ADHD Pt in for follow up on ADHD BRIDGET Cedillo PLAN OF CARE Activity Details Follow Up 3 Months, prn Reason:CHM/ADHD- w/Jordan VITAL SIGNS Height 64 in 2017-10-26 Weight 141.2 lbs 2017-10-26 Temperature 98.3 degrees Fahrenheit 2017-10-26 Heart Rate 82 bpm 2017-10-26 Respiratory Rate 18 2017-10-26 BMI 24.23 kg/m2 2017-10-26 Blood pressure systolic 126 mmHg 2017-10-26 Blood pressure diastolic 78 mmHg 2017-10-26 MEDICATIONS Medication Instructions Dosage Frequency Start Date End Date Duration Status Albuterol Sulfate HFA 108 (90 Base) MCG/ACT Inhalation 4 times a day 2 puffs as needed 6h Aug, Not-Taking Claritin-D 24 Hour 10-240 MG Orally Once a day 1 tablet as needed 24h Oct, Oct, 14 days Active Adderall 10 mg Orally twice a day 1 tablet in the morning then one tablet around noon or 1 pm. 12h Oct, 28 days Active RESULTS No Results PROCEDURES No Known procedures INSTRUCTIONS MEDICATIONS ADMINISTERED No Known Medications MEDICAL (GENERAL) HISTORY Type Description Date Medical History ADHD Medical History Asthma- allergy induced Medical History Seasonal allergies Surgical History No know Surgical history Hospitalization History labor and delivery x 1 2011 Hospitalization History labor and delivery 2018
--- OUTSIDE RECORDS SUMMARY | 2018-06-15 17:47 | XMS REPORT ---
Author Author DEL GODWIN Organization [facility] Address [address] [place] [address] Care Team Providers Care Hand Bulldozer Name Role Phone DEL GODWIN Unavailable PROBLEMS Type Condition ICD9-CM Code EBA95-MH Code Onset Dates Condition Status SNOMED Code Problem Overweight (BMI 25.0-29.9) E66.3 Active 616278184 Problem Anxiety F41.9 Active 76029167 Problem Hypertriglyceridemia without hypercholesterolemia E78.1 Active 028050518 Problem Attention deficit hyperactivity disorder (ADHD), combined type F90.2 Active 21152906 Problem Elevated liver enzymes R74.8 Active 656323581 ALLERGIES No Information ENCOUNTERS Encounter Location Date Diagnosis [place] [id number] [address] Oct, [place] [address] 125[address]- [address]12 Sep, Attention deficit hyperactivity disorder (ADHD), combined type F90.2 [place] [id number] [place] [address] 30331- 9010 Aug, Attention deficit hyperactivity disorder (ADHD), combined type F90.2 [place] [id number] [place] [address] 39336- 9563 Jul, Attention deficit hyperactivity disorder (ADHD), combined type F90.2 [place] [address] 81910- 0139 12 Jul, 2017 Attention deficit hyperactivity disorder (ADHD), combined type F90.2 ; Hypertriglyceridemia without hypercholesterolemia E78.1 ; Anxiety F41.9 ; Elevated liver enzymes R74.8 and Overweight (BMI 25.0-29.9) E66.3 [place] [address] 32913- 9149 June, Attention deficit hyperactivity disorder (ADHD), combined type F90.2 [facility] [address], [place] [address]- 2667 May, Attention deficit hyperactivity disorder (ADHD), combined type F90.2 and Routine health maintenance Z00.00 [facility] [address], [place] [address]- 49[address] 19 Oct, 2016 [facility] [id number] [place] [address] 17252- 0010 18 Oct, 2016 Attention deficit hyperactivity disorder (ADHD), combined type F90.2 [facility] [id number] [address]- 6027 Sep, Attention deficit hyperactivity disorder (ADHD), combined type F90.2 [facility] [address], [place] [address]- 7773 Aug, Attention deficit hyperactivity disorder (ADHD), combined type F90.2 [facility] [address], [place] [address]- 2037 Jul, Attention deficit hyperactivity disorder (ADHD), combined type F90.2 [facility] [address], [place] [address]- 3998 June, Attention deficit hyperactivity disorder (ADHD), combined type F90.2 [facility] [address], [place] [address]- 7900 June, Attention deficit hyperactivity disorder (ADHD), combined type F90.2 [facility] [address], [place] [address]- 1312 13 May, 2016 Attention deficit hyperactivity disorder (ADHD), combined type F90.2 [facility] [address], [place] [address]- 5117 04 May, 2016 Encounter for test, result unknown Z32.00 [facility] [id number] [address]- 8963 Apr, Attention deficit hyperactivity disorder (ADHD), combined type F90.2 [facility] [address] [place] [address] 85719- 9461 Mar, Attention deficit hyperactivity disorder (ADHD), combined type F90.2 [facility] [id number] [place] [address] 76307- 6583 Feb, Attention deficit hyperactivity disorder (ADHD), combined type F90.2 [facility] [id number] [place] [address] 28800- 3664 Jan, [place] [id number] [place] [address] 58648- 1344 Jan, [place] [address] [id number] [place] [address] 86391- 9418 Dec, [facility] [id number] [place] [address] 41874 -6995 Dec, Acute middle ear effusion, right H65.191 [facility] [address] [id number] [place] [address] 19626- 1065 Nov, [facility] [id number] [place] [address] 07916 -7386 Nov, Sore throat J02.9 [facility] WALK IN [facility] [address] [id number] [place] [address] 34301 -8423 Nov, Right otitis media, unspecified chronicity, unspecified otitis media type H66.91 [facility] [address] [id number] [place] [address] 57633- 9373 Nov, Attention deficit hyperactivity disorder (ADHD), combined type F90.2 and Anxiety F41.9 [facility] [id number] [place] [address] 99222- 8092 Oct, Attention deficit hyperactivity disorder (ADHD), combined type F90.2 and High risk medication use Z79.899 [place] [address] [id number] [place] [address] 50891- 5114 Oct, Attention deficit hyperactivity disorder (ADHD), combined type F90.2 [facility] WALK IN [facility] [id number] [place] [address] 02145 -8976 Sep, Seasonal allergic rhinitis due to pollen J30.1 [facility] [address] 14752- 3916 Sep, Routine health maintenance Z00.00 ; Attention deficit hyperactivity disorder (ADHD), combined type F90.2 ; Anxiety F41.9 and Controlled substance agreement signed Z79.899 [facility] WALK IN [address] [address] -6893 Aug, Mild intermittent asthma without complication J45.20 [facility] WALK IN [address] 45799 -3205 Aug, Bronchitis J40 [facility] WALK IN [address] 86850 -9886 May, Other pruritus L29.8 and Exposure to strep throat Z20.818 [place] [address] [place] [id number] [place] [address] 58679- 0789 Jan, [facility] [address] [place] [id number] [place] [address] 74638- 8394 Jan, [facility] [address] [place] [id number] [place] [address] 36076- 7408 Aug, [facility] [address] 21249- 4837 June, [facility] [address] 93108- 6884 Apr, [facility] [address] 65852- 0895 Dec, [facility] [address] 43112- 2363 Dec, [facility] [address] [facility] [id number] [place] [address]- 6754 Oct, IMMUNIZATIONS No Known Immunizations SOCIAL HISTORY Never Assessed REASON FOR VISIT Refill request PLAN OF CARE VITAL SIGNS MEDICATIONS Medication Instructions Dosage Frequency Start Date End Date Duration Status Adderall 10 mg Orally twice a day 1 tablet in the morning then one tablet around noon or 1 pm. 12h 16 Aug, 2017 28 days Active RESULTS No Results PROCEDURES No Known procedures INSTRUCTIONS MEDICATIONS ADMINISTERED No Known Medications MEDICAL (GENERAL) HISTORY Type Description Date Medical History ADHD Medical History Asthma- allergy induced Medical History Seasonal allergies Hospitalization History labor and delivery x 1 2011 Hospitalization History labor and delivery 2018
--- OUTSIDE RECORDS SUMMARY | 2018-06-15 17:47 | XMS REPORT ---
Author Author DEL GODWIN Organization [facility] Address [address] [place] [address] Care Team Providers Care Class A Regional Drivers Name Role Phone DEL GODWIN Unavailable PROBLEMS Type Condition ICD9-CM Code [id number] Code Onset Dates Condition Status SNOMED Code Problem Overweight (BMI 25.0-29.9) E66.3 Active 217564690 Problem Anxiety F41.9 Active 54571578 Problem Hypertriglyceridemia without hypercholesterolemia E78.1 Active 074072728 Problem Attention deficit hyperactivity disorder (ADHD), combined type F90.2 Active 12837380 Problem Elevated liver enzymes R74.8 Active 955252217 ALLERGIES No Information ENCOUNTERS Encounter Location Date Diagnosis [place] [id number] [address] Oct, [place] [address] [address] Sep, Attention deficit hyperactivity disorder (ADHD), combined type F90.2 [place] [address] [place] [id number] [place] [address]23- 3221 Aug, Attention deficit hyperactivity disorder (ADHD), combined type F90.2 [place] [address] [place] [id number] [place] [address] 34068- 7122 Jul, Attention deficit hyperactivity disorder (ADHD), combined type F90.2 [place] [address] [address]- [address] 12 Jul, 2017 Attention deficit hyperactivity disorder (ADHD), combined type F90.2 ; Hypertriglyceridemia without hypercholesterolemia E78.1 ; Anxiety F41.9 ; Elevated liver enzymes R74.8 and Overweight (BMI 25.0-29.9) E66.3 [place] [address] [address] June, Attention deficit hyperactivity disorder (ADHD), combined type F90.2 [facility] [address] [address] May, Attention deficit hyperactivity disorder (ADHD), combined type F90.2 and Routine health maintenance Z00.00 [facility] [address] [address] 19 Oct, 2016 [facility] [address] [place] [id number] [place] [address] 60675- 7299 18 Oct, 2016 Attention deficit hyperactivity disorder (ADHD), combined type F90.2 [facility] [address] [place] [id number] [address] Sep, Attention deficit hyperactivity disorder (ADHD), combined type F90.2 [facility] [address] [address] Aug, Attention deficit hyperactivity disorder (ADHD), combined type F90.2 [facility] [address] [address] Jul, Attention deficit hyperactivity disorder (ADHD), combined type F90.2 [facility] [address] [address] June, Attention deficit hyperactivity disorder (ADHD), combined type F90.2 [facility] [address] [address] June, Attention deficit hyperactivity disorder (ADHD), combined type F90.2 [facility] [address] [address] 13 May, 2016 Attention deficit hyperactivity disorder (ADHD), combined type F90.2 [facility] [address], [place] [address] 04 May, 2016 Encounter for test, result unknown Z32.00 [facility] [address] [place] [id number] [address] Apr, Attention deficit hyperactivity disorder (ADHD), combined type F90.2 [facility] [address] [place] [address] 17433- 3216 Mar, Attention deficit hyperactivity disorder (ADHD), combined type F90.2 [facility] [address] [place] [id number] [place] [address] 74167- 6816 Feb, Attention deficit hyperactivity disorder (ADHD), combined type F90.2 [facility] [address] [place] [id number] [place] [address] 61713- 0052 Jan, [place] [address] [place] [id number] [place] [address] 08705- 6352 Jan, [place] [address] [place] [id number] [place] [address] 95311- 7243 Dec, [facility] [address] [place] [id number] [place] [address] 74603 -2380 Dec, Acute middle ear effusion, right H65.191 [facility] [address] [place] [id number] [place] [address] 84197- 0118 Nov, [facility] [address] [place] [id number] [place] [address] 32811 -3545 Nov, Sore throat J02.9 [facility] [address] [place] [id number] [place] [address] 83452 -1824 Nov, Right otitis media, unspecified chronicity, unspecified otitis media type H66.91 [facility] [address] [place] [id number] [place] [address] 62362- 1769 Nov, Attention deficit hyperactivity disorder (ADHD), combined type F90.2 and Anxiety F41.9 [facility] [address] [place] [id number] [place] [address] 93847- 8935 Oct, Attention deficit hyperactivity disorder (ADHD), combined type F90.2 and High risk medication use Z79.899 [place] [address] [place] [id number] [place] [address] 05657- 5295 Oct, Attention deficit hyperactivity disorder (ADHD), combined type F90.2 [facility] [address] [place] [id number] [place] [address] 97401 -1038 Sep, Seasonal allergic rhinitis due to pollen J30.1 [facility] [address] 08[address]- 4870 Sep, Routine health maintenance Z00.00 ; Attention deficit hyperactivity disorder (ADHD), combined type F90.2 ; Anxiety F41.9 and Controlled substance agreement signed Z79.899 [facility] [address] [address] Aug, Mild intermittent asthma without complication J45.20 [facility] [address] [address] Aug, Bronchitis J40 [facility] [address] [address] May, Other pruritus L29.8 and Exposure to strep throat Z20.818 [place] [address] [place] [id number] [place] [address] 60934- 2399 Jan, [facility] [address] [place] [id number] [place] [address] 98485- 9500 Jan, [facility] [address] [place] [id number] [place] [address] 43889- 7132 Aug, [facility] [address] [address]- 3498 June, [facility] [address] 88[address]- 0528 Apr, [facility] [address] 88256- 3629 Dec, [facility] [address] [address]- 3377 Dec, [facility] [address] [facility] [id number] [address] Oct, IMMUNIZATIONS No Known Immunizations SOCIAL HISTORY Never Assessed REASON FOR VISIT Controlled refill PLAN OF CARE VITAL SIGNS MEDICATIONS Medication Instructions Dosage Frequency Start Date End Date Duration Status Adderall 10 mg Orally twice a day 1 tablet in the morning then one tablet around noon or 1 pm. 12h 18 Jul, 2017 28 days Active RESULTS No Results PROCEDURES No Known procedures INSTRUCTIONS MEDICATIONS ADMINISTERED No Known Medications MEDICAL (GENERAL) HISTORY Type Description Date Medical History ADHD Medical History Asthma- allergy induced Medical History Seasonal allergies Hospitalization History labor and delivery x 1 2011 Hospitalization History labor and delivery 2018
--- OUTSIDE RECORDS SUMMARY | 2018-06-15 17:47 | XMS REPORT ---
Author Author GODWINDEL Fraga Organization [facility] Address [address] [place] [address] Care Team Providers Care Senior Sales Operations Manager Name Role Phone DEL GODWIN Unavailable PROBLEMS Type Condition ICD9-CM Code [id number] Code Onset Dates Condition Status SNOMED Code Problem Overweight (BMI 25.0-29.9) E66.3 Active 120345976 Problem Anxiety F41.9 Active 65408665 Problem Hypertriglyceridemia without hypercholesterolemia E78.1 Active 469686145 Problem Attention deficit hyperactivity disorder (ADHD), combined type F90.2 Active 67607519 Problem Elevated liver enzymes R74.8 Active 262830254 ALLERGIES Substance Reaction Event Type Date Status Penicillin V Potassium rash Drug Allergy Jul, Active ENCOUNTERS Encounter Location Date Diagnosis [place] [address] [place] [id number] [place] [address]8572- 5565 Oct, [place] [address] [place] [id number] [place] [address] 68202- 5938 13 Sep, 2017 Attention deficit hyperactivity disorder (ADHD), combined type F90.2 [place] [address] [place] [id number] [place] [address] 52617- 7837 16 Aug, 2017 Attention deficit hyperactivity disorder (ADHD), combined type F90.2 [facility] [address] [place] [id number] [place] [address] 53764- 5044 Jul, Attention deficit hyperactivity disorder (ADHD), combined type F90.2 [facility] [address] [address]- 5066 12 Jul, 2017 Attention deficit hyperactivity disorder (ADHD), combined type F90.2 ; Hypertriglyceridemia without hypercholesterolemia E78.1 ; Anxiety F41.9 ; Elevated liver enzymes R74.8 and Overweight (BMI 25.0-29.9) E66.3 [facility] [address], [place] [address]- 87[address] 14 Jun, 2017 Attention deficit hyperactivity disorder (ADHD), combined type F90.2 [facility] [address], [place] [address]- 87[address] May, Attention deficit hyperactivity disorder (ADHD), combined type F90.2 and Routine health maintenance Z00.00 [facility] [address] [place] [id number] [place] [address] 02373- 9986 19 Oct, 2016 [facility] [address] [place] [id number], [place] [address] 3853 18 Oct, 2016 Attention deficit hyperactivity disorder (ADHD), combined type F90.2 [facility] [address], [place] [address]- 0110 Sep, Attention deficit hyperactivity disorder (ADHD), combined type F90.2 [facility] [address] [place] [id number] [address]- 2494 Aug, Attention deficit hyperactivity disorder (ADHD), combined type F90.2 [facility] [address] [place] [address] 06218- 6188 Jul, Attention deficit hyperactivity disorder (ADHD), combined type F90.2 [facility] [address], [place] [address]- 0797 June, Attention deficit hyperactivity disorder (ADHD), combined type F90.2 [facility] [address], [place] [address]- 1191 June, Attention deficit hyperactivity disorder (ADHD), combined type F90.2 [facility] [address], [place] [address]- 8989 13 May, 2016 Attention deficit hyperactivity disorder (ADHD), combined type F90.2 [facility] [address], [place] [address]- 0489 May, Encounter for test, result unknown Z32.00 [facility] [address] [place] [id number] [place] [address] 57375- 0071 Apr, Attention deficit hyperactivity disorder (ADHD), combined type F90.2 [facility] [address] [place] [id number] [place] [address] 06513- 4578 Mar, Attention deficit hyperactivity disorder (ADHD), combined type F90.2 [place] [address] [place] [id number] [place] [address] 39163- 5608 Feb, Attention deficit hyperactivity disorder (ADHD), combined type F90.2 [place] [address] [place] [id number] [place] [address] 91887- 4094 Jan, [place] [address] [place] [id number] [place] [address] 30558- 4343 Jan, [place] [address] [place] [id number] [place] [address] 64545- 9664 Dec, [facility] [address] [place] [id number] [place] [address] 81770 -4236 Dec, Acute middle ear effusion, right H65.191 [place] [address] [place] [id number] [place] [address] 99888- 3297 Nov, [facility] [address] [place] [id number] [place] [address] 74074 -1173 Nov, Sore throat J02.9 [facility] [place] [address] [place] [id number] [place] [address] 23848 -3411 Nov, Right otitis media, unspecified chronicity, unspecified otitis media type H66.91 [place] [address] [place] [id number] [place] [address] 31189- 3107 Nov, Attention deficit hyperactivity disorder (ADHD), combined type F90.2 and Anxiety F41.9 [facility] [address] [place] [id number] [place] [address] 16005- 8321 Oct, Attention deficit hyperactivity disorder (ADHD), combined type F90.2 and High risk medication use Z79.899 [facility] [address] [place] [id number] [place] [address] 09263- 5031 Oct, Attention deficit hyperactivity disorder (ADHD), combined type F90.2 [facility] [address] [place] [id number] [place] [address] 91106 -6952 Sep, Seasonal allergic rhinitis due to pollen J30.1 [facility] [address] 09308- 6473 Sep, Routine health maintenance Z00.00 ; Attention deficit hyperactivity disorder (ADHD), combined type F90.2 ; Anxiety F41.9 and Controlled substance agreement signed Z79.899 [facility] [address] [address] -6735 Aug, Mild intermittent asthma without complication J45.20 [facility] [address] 7[address] -4067 Aug, Bronchitis J40 [facility] [address] 7[address] -5763 May, Other pruritus L29.8 and Exposure to strep throat Z20.818 [facility] [address] [place] [id number] [place] [address] 46913- 8050 Jan, [facility] [address] [place] [id number] [place] [address] 13953- 8544 Jan, [facility] [address] 58[address]- 1906 Aug, [facility] [address] 68360- 4450 June, [facility] [address] 87837- 5663 Apr, [facility] [address] [place] [id number] [place] [address] 07241- 8363 Dec, [facility] [address] 75960- 2546 Dec, [facility] [address] [facility] [id number] [place] [address]- 2546 Oct, IMMUNIZATIONS No Known Immunizations SOCIAL HISTORY Never Assessed REASON FOR VISIT ADHD F/U -- lakhwinder rich PLAN OF CARE Activity Details Follow Up 3 Months, prn Reason:CHM/ADD VITAL SIGNS Height 64 in 2017-07-27 Weight 146.0 lbs 2017-07-27 Temperature 98.0 degrees Fahrenheit 2017-07-27 Heart Rate 70 bpm 2017-07-27 Respiratory Rate 18 2017-07-27 BMI 25.06 kg/m2 2017-07-27 Blood pressure systolic 120 mmHg 2017-07-27 Blood pressure diastolic 72 mmHg 2017-07-27 MEDICATIONS Medication Instructions Dosage Frequency Start Date End Date Duration Status Albuterol Sulfate HFA 108 (90 Base) MCG/ACT Inhalation 4 times a day 2 puffs as needed 6h 27 Aug, 2015 Not-Taking Adderall 10 mg Orally twice a day 1 tablet in the morning then one tablet around noon or 1 pm. 12h June, Active RESULTS No Results PROCEDURES No Known procedures INSTRUCTIONS MEDICATIONS ADMINISTERED No Known Medications MEDICAL (GENERAL) HISTORY Type Description Date Medical History ADHD Medical History Asthma- allergy induced Medical History Seasonal allergies Hospitalization History labor and delivery x 1 2011 Hospitalization History labor and delivery 2018
--- OUTSIDE RECORDS SUMMARY | 2018-06-15 17:47 | XMS REPORT ---
Author Author GODWINDEL Fraga Organization [facility] Address [address] [place] [address] Care Team Providers Care Servicer Coin Machines Name Role Phone DEL GODWIN Unavailable PROBLEMS Type Condition ICD9-CM Code [id number] Code Onset Dates Condition Status SNOMED Code Problem Hypertriglyceridemia without hypercholesterolemia E78.1 Active 848424418 Problem Seasonal allergies J30.2 Active 382111697 Problem Attention deficit hyperactivity disorder (ADHD), unspecified ADHD type F90.9 Active 562206972 Problem Anxiety F41.9 Active 55392306 Problem Elevated liver enzymes R74.8 Active 081898173 Problem Overweight (BMI 25.0-29.9) E66.3 Active 981358291 Problem Attention deficit hyperactivity disorder (ADHD), combined type F90.2 Active 79944054 ALLERGIES No Information ENCOUNTERS Encounter Location Date Diagnosis [facility] [address] [place] [id number] [place] [address] 15685 -9140 12 Oct, 2017 Sore throat J02.9 and Seasonal allergies J30.2 [facility] [address] [place] [id number] [place] [address] 92030- 8089 11 Oct, 2017 Attention deficit hyperactivity disorder (ADHD), unspecified ADHD type F90.9 and Viral pharyngitis J02.9 [facility] [address] [place] [id number] [place] [address] 32894- 0406 10 Oct, 2017 Attention deficit hyperactivity disorder (ADHD), combined type F90.2 [facility] [address] [place] [id number] [place] [address] 87292- 2630 13 Sep, 2017 Attention deficit hyperactivity disorder (ADHD), combined type F90.2 [facility] [address] [place] [id number] [place] [address] 51992- 1056 16 Aug, 2017 Attention deficit hyperactivity disorder (ADHD), combined type F90.2 [facility] [address], [place] [address]- 1386 Jul, Attention deficit hyperactivity disorder (ADHD), combined type F90.2 [facility] [address], [place] [address]- 2165 Jul, Attention deficit hyperactivity disorder (ADHD), combined type F90.2 ; Hypertriglyceridemia without hypercholesterolemia E78.1 ; Anxiety F41.9 ; Elevated liver enzymes R74.8 and Overweight (BMI 25.0-29.9) E66.3 [facility] [address], [place] [address]- 9340 June, Attention deficit hyperactivity disorder (ADHD), combined type F90.2 [facility] [address], [place] [address]- 0027 May, Attention deficit hyperactivity disorder (ADHD), combined type F90.2 and Routine health maintenance Z00.00 [facility] [address], [place] [address]- 1094 Oct, [facility] [address] [place] [id number] [place] [address] 01661- 8232 Oct, Attention deficit hyperactivity disorder (ADHD), combined type F90.2 [facility] [address], [place] [address]- 1497 Sep, Attention deficit hyperactivity disorder (ADHD), combined type F90.2 [facility] [address], [place] [address]- 0301 Aug, Attention deficit hyperactivity disorder (ADHD), combined type F90.2 [facility] [address], [place] [address]- 8235 Jul, Attention deficit hyperactivity disorder (ADHD), combined type F90.2 [facility] [address], [place] [address]- 4454 June, Attention deficit hyperactivity disorder (ADHD), combined type F90.2 [place] [address] [place] [id number] [place] [address] 24601- 8858 June, Attention deficit hyperactivity disorder (ADHD), combined type F90.2 [facility] [address] [place] [id number] [place] [address] 12560- 3919 May, Attention deficit hyperactivity disorder (ADHD), combined type F90.2 [place] [address] [address]- 4703 May, Encounter for test, result unknown Z32.00 [facility] [address] 83363- 0510 Apr, Attention deficit hyperactivity disorder (ADHD), combined type F90.2 [facility] [address] [place] [id number] [place] [address] 68608- 5218 Mar, Attention deficit hyperactivity disorder (ADHD), combined type F90.2 [place] [address] 20452- 7923 Feb, Attention deficit hyperactivity disorder (ADHD), combined type F90.2 [place] [address] 50[address]- 3694 Jan, [facility] [address] [place] [id number] [place] [address] 39312- 1195 Jan, [place] [address] [place] [address] [id number] [place] [address] 82074- 3157 Dec, [facility] [place] [address] [place] [id number] [place] [address] 76748 -4868 Dec, Acute middle ear effusion, right H65.191 [facility] [address] 70977- 0929 Nov, [facility] [address] [place] [id number] [place] [address] 90727 -8291 Nov, Sore throat J02.9 [facility] [address] 09799 -3620 Nov, Right otitis media, unspecified chronicity, unspecified otitis media type H66.91 [place] [address] 19577- 6866 Nov, Attention deficit hyperactivity disorder (ADHD), combined type F90.2 and Anxiety F41.9 [place] [address] 53266- 3868 Oct, Attention deficit hyperactivity disorder (ADHD), combined type F90.2 and High risk medication use Z79.899 [place] [address] 36000- 8511 Oct, Attention deficit hyperactivity disorder (ADHD), combined type F90.2 [facility] [place] [address] 74403 -9273 Sep, Seasonal allergic rhinitis due to pollen J30.1 [place] [address] 43929- 0662 Sep, Routine health maintenance Z00.00 ; Attention deficit hyperactivity disorder (ADHD), combined type F90.2 ; Anxiety F41.9 and Controlled substance agreement signed Z79.899 [facility] [place] [address] [address] [id number] [place] [address] 60973 -5906 Aug, Mild intermittent asthma without complication J45.20 [facility] [place] [id number] [place] [address] 79798 -8974 Aug, Bronchitis J40 [facility] [address] 65[address] -5497 May, Other pruritus L29.8 and Exposure to strep throat Z20.818 [place] [address] [address] [id number] [place] [address] 59362- 3126 Jan, [place] [address] [place] [address] [id number] [place] [address] 13910- 2648 Jan, [place] [address] [address]- 2546 Aug, [facility] [address] [place] [id number], [place] [address]- 0776 June, [facility] [address] [place] [id number], [place] [address]- 2546 Apr, [facility] [address] [place] [id number], [place] [address]- 2546 Dec, [facility] [address], [place] [address]- 2546 Dec, [facility] [address] [place] [address] [id number], [place] [address]- 0135 Oct, IMMUNIZATIONS No Known Immunizations SOCIAL HISTORY Never Assessed REASON FOR VISIT Adderal 10/25 PLAN OF CARE VITAL SIGNS MEDICATIONS Medication Instructions Dosage Frequency Start Date End Date Duration Status Adderall 10 mg Orally twice a day 1 tablet in the morning then one tablet around noon or 1 pm. 12Oct, 28 days Active RESULTS No Results PROCEDURES No Known procedures INSTRUCTIONS MEDICATIONS ADMINISTERED No Known Medications MEDICAL (GENERAL) HISTORY Type Description Date Medical History ADHD Medical History Asthma- allergy induced Medical History Seasonal allergies Surgical History No know Surgical history Hospitalization History labor and delivery x 1 2011 Hospitalization History labor and delivery 2018
--- OUTSIDE RECORDS SUMMARY | 2018-06-15 17:48 | XMS REPORT ---
Author Author DEL GODWIN Organization [facility] Address [address] [place] [address] Care Team Providers Care Retail And Restaurant Associate Name Role Phone DEL GODWIN Unavailable PROBLEMS Type Condition ICD9-CM Code BYL77-LA Code Onset Dates Condition Status SNOMED Code Problem Overweight (BMI 25.0-29.9) E66.3 Active 223476796 Problem Anxiety F41.9 Active 76068868 Problem Hypertriglyceridemia without hypercholesterolemia E78.1 Active 884527626 Problem Attention deficit hyperactivity disorder (ADHD), combined type F90.2 Active 97429580 Problem Elevated liver enzymes R74.8 Active [id number] ALLERGIES No Information ENCOUNTERS Encounter Location Date Diagnosis [place] [address] [address] Oct, [place] [address] [address] Aug, Attention deficit hyperactivity disorder (ADHD), combined type F90.2 [place] [address] [address] [place] [id number] [place] [address] Jul, Attention deficit hyperactivity disorder (ADHD), combined type F90.2 [place] [address] [place] [id number] [place] [address] 12 Jul, 2017 Attention deficit hyperactivity disorder (ADHD), combined type F90.2 ; Hypertriglyceridemia without hypercholesterolemia E78.1 ; Anxiety F41.9 ; Elevated liver enzymes R74.8 and Overweight (BMI 25.0-29.9) E66.3 [place] [address] [place] [id number] [place] [address] June, Attention deficit hyperactivity disorder (ADHD), combined type F90.2 [place] [address] [address] [place] [id number] [place] [address] May, Attention deficit hyperactivity disorder (ADHD), combined type F90.2 and Routine health maintenance Z00.00 [facility] [address], [place] [address] 19 Oct, 2016 [facility] [address] [address] 18 Oct, 2016 Attention deficit hyperactivity disorder (ADHD), combined type F90.2 [facility] [address], [place] [address] Sep, Attention deficit hyperactivity disorder (ADHD), combined type F90.2 [facility] [address] [place] [address] [address] Aug, Attention deficit hyperactivity disorder (ADHD), combined type F90.2 [facility] [address], [place] [address] Jul, Attention deficit hyperactivity disorder (ADHD), combined type F90.2 [facility] [address] [place] [address] June, Attention deficit hyperactivity disorder (ADHD), combined type F90.2 [facility] [address], [place] [address] June, Attention deficit hyperactivity disorder (ADHD), combined type F90.2 [facility] [address], [place] [address] May, Attention deficit hyperactivity disorder (ADHD), combined type F90.2 [facility] [address], [place] [address] May, Encounter for test, result unknown Z32.00 [facility] [address], [place] [address] Apr, Attention deficit hyperactivity disorder (ADHD), combined type F90.2 [facility] [address] [place] [address] Mar, Attention deficit hyperactivity disorder (ADHD), combined type F90.2 [facility] [address] [place] [address]66[address] 79[address] Feb, Attention deficit hyperactivity disorder (ADHD), combined type F90.2 [facility] [address] [place] [address]93- 7[address] Jan, [facility] [address] [place] [id number] [place] [address]87[address] 9[address] Jan, [facility] [address] [place] [id number] [place] [address] 68407[address] Dec, [facility] [address] [place] [id number] [place] [address] Dec, Acute middle ear effusion, right H65.191 [place] [address] [address] [place] [id number] [place] [address] Nov, [facility] [address] [place] [id number] [place] [address] Nov, Sore throat J02.9 [facility] [address] [place] [id number] [place] [address] Nov, Right otitis media, unspecified chronicity, unspecified otitis media type H66.91 [place] [address] [place] [address] 43797- 6[address] Nov, Attention deficit hyperactivity disorder (ADHD), combined type F90.2 and Anxiety F41.9 [facility] [address] [place] [id number] [place] [address]97- 120[address] 30 Oct, 2015 Attention deficit hyperactivity disorder (ADHD), combined type F90.2 and High risk medication use Z79.899 [facility] [address] [place] [address]85- [address] 06 Oct, 2015 Attention deficit hyperactivity disorder (ADHD), combined type F90.2 [facility] [address] [place] [id number] [place] [address] Sep, Seasonal allergic rhinitis due to pollen J30.1 [facility] [address] [address] Sep, Routine health maintenance Z00.00 ; Attention deficit hyperactivity disorder (ADHD), combined type F90.2 ; Anxiety F41.9 and Controlled substance agreement signed Z79.899 [facility] [address] [address] Aug, Mild intermittent asthma without complication J45.20 [facility] [place] [address] [address] Aug, Bronchitis J40 [facility] [address] [address] May, Other pruritus L29.8 and Exposure to strep throat Z20.818 [facility] [address] [address] Jan, [facility] [address] [address] Jan, [place] [address] [address] Aug, [place] [place] [id number] [place] [address]41- [address] June, [facility] [address] [place] [id number] [place] [address]76- [address] Apr, [facility] [address] [address] Dec, [place] [address] [address] Dec, [facility] [address] [address] Oct, IMMUNIZATIONS No Known Immunizations SOCIAL HISTORY Never Assessed REASON FOR VISIT Controlled Med Refill PLAN OF CARE VITAL SIGNS MEDICATIONS Medication Instructions Dosage Frequency Start Date End Date Duration Status Adderall 10 mg Orally twice a day 1 tablet in the morning then one tablet around noon or 1 pm. 12h 14 Jun, 2017 28 days Active RESULTS No Results PROCEDURES No Known procedures INSTRUCTIONS MEDICATIONS ADMINISTERED No Known Medications MEDICAL (GENERAL) HISTORY Type Description Date Medical History ADHD Medical History Asthma- allergy induced Medical History Seasonal allergies Hospitalization History labor and delivery x 1 2011 Hospitalization History labor and delivery 2018
--- OUTSIDE RECORDS SUMMARY | 2018-06-15 17:48 | XMS REPORT ---
Author Author GODWINDEL Fraga Organization [facility] Address [address] [place] [address] Care Team Providers Care Completions Engineer Name Role Phone DEL GODWIN Unavailable PROBLEMS Type Condition ICD9-CM Code BPA45-WO Code Onset Dates Condition Status SNOMED Code Problem Overweight (BMI 25.0-29.9) E66.3 Active 109299912 Problem Anxiety F41.9 Active 61133457 Problem Hypertriglyceridemia without hypercholesterolemia E78.1 Active 204947214 Problem Attention deficit hyperactivity disorder (ADHD), combined type F90.2 Active 18229460 Problem Elevated liver enzymes R74.8 Active 892827602 ALLERGIES Substance Reaction Event Type Date Status Penicillin V Potassium rash Drug Allergy May, Active ENCOUNTERS Encounter Location Date Diagnosis [place] [id number] [place] [id number] [place] [address] Aug, Attention deficit hyperactivity disorder (ADHD), combined type F90.2 [place] [address] [address] [place] [id number] [place] [address] Jul, Attention deficit hyperactivity disorder (ADHD), combined type F90.2 [place] [address] [place] [id number] [place] [address] Jul, Attention deficit hyperactivity disorder (ADHD), combined type F90.2 ; Hypertriglyceridemia without hypercholesterolemia E78.1 ; Anxiety F41.9 ; Elevated liver enzymes R74.8 and Overweight (BMI 25.0-29.9) E66.3 [facility] [address] [place] [id number] [place] [address] June, Attention deficit hyperactivity disorder (ADHD), combined type F90.2 [place] [address] [place] [id number] [place] [address]- [address] May, Attention deficit hyperactivity disorder (ADHD), combined type F90.2 and Routine health maintenance Z00.00 [facility] [address] [address] 19 Oct, 2016 [facility] [address] [address] 18 Oct, 2016 Attention deficit hyperactivity disorder (ADHD), combined type F90.2 [facility] [address] [place] [id number] [address] Sep, Attention deficit hyperactivity disorder (ADHD), combined type F90.2 [facility] [address] [address] Aug, Attention deficit hyperactivity disorder (ADHD), combined type F90.2 [facility] [address] [address] Jul, Attention deficit hyperactivity disorder (ADHD), combined type F90.2 [facility] [address] [address] June, Attention deficit hyperactivity disorder (ADHD), combined type F90.2 [facility] [address] [address] June, Attention deficit hyperactivity disorder (ADHD), combined type F90.2 [facility] [address] [address] May, Attention deficit hyperactivity disorder (ADHD), combined type F90.2 [facility] [address] [address] May, Encounter for test, result unknown Z32.00 [facility] [address] [place] [id number] [address] Apr, Attention deficit hyperactivity disorder (ADHD), combined type F90.2 [facility] [address] [address] Mar, Attention deficit hyperactivity disorder (ADHD), combined type F90.2 [facility] [address] [place] [id number] [place] [address]13- 37[address] Feb, Attention deficit hyperactivity disorder (ADHD), combined type F90.2 [facility] [address] [place] [id number] [place] [address]24- 7073 Jan, [facility] [address] [address] Jan, [facility] [address] [place] [id number] [place] [address]84- [address] Dec, [facility] [address] [address] Dec, Acute middle ear effusion, right H65.191 [place] [address] [address] Nov, [facility] [address] Nov, Sore throat J02.9 [facility] [place] [address] [place] [id number] [place] [address] Nov, Right otitis media, unspecified chronicity, unspecified otitis media type H66.91 [place] [address] [place] [id number] [place] [address] 40809- [address]015 Nov, Attention deficit hyperactivity disorder (ADHD), combined type F90.2 and Anxiety F41.9 [facility] [address] [place] [id number] [place] [address]178- 4919 Oct, Attention deficit hyperactivity disorder (ADHD), combined type F90.2 and High risk medication use Z79.899 [place] [address] [place] [id number] [place] [address]- [address]076 Oct, Attention deficit hyperactivity disorder (ADHD), combined type F90.2 [facility] [address] [place] [id number] [place] [address] Sep, Seasonal allergic rhinitis due to pollen J30.1 [facility] [address] [place] [id number] [place] [address]- 38[address] Sep, Routine health maintenance Z00.00 ; Attention deficit hyperactivity disorder (ADHD), combined type F90.2 ; Anxiety F41.9 and Controlled substance agreement signed Z79.899 [facility] [address] [address] Aug, Mild intermittent asthma without complication J45.20 [facility] [address] [address] Aug, Bronchitis J40 [facility] [address] [address] May, Other pruritus L29.8 and Exposure to strep throat Z20.818 [place] [address] [address] Jan, [facility] [address] [address] Jan, [place] [address] [address] Aug, [facility] [address] [place] [id number] [place] [address]53- 42[address] June, [facility] [address] [address] Apr, [facility] [address] [place] [id number] [place] [address]5629- [address] Dec, [facility] [address] [address] Dec, [facility] [address] [place] [id number] [place] [address]39- 7344 Oct, IMMUNIZATIONS No Known Immunizations SOCIAL HISTORY Never Assessed REASON FOR VISIT ADHD, would like to restart after . KLaird, RN PLAN OF CARE Activity Details Follow Up 4 Weeks Reason:ADHD f/u VITAL SIGNS Height 64 in 2017-06-07 Weight 153.6 lbs 2017-06-07 Temperature 97.8 degrees Fahrenheit 2017-06-07 Heart Rate 69 bpm 2017-06-07 Respiratory Rate 20 2017-06-07 BMI 26.36 kg/m2 2017-06-07 Blood pressure systolic 118 mmHg 2017-06-07 Blood pressure diastolic 58 mmHg 2017-06-07 MEDICATIONS Medication Instructions Dosage Frequency Start Date End Date Duration Status Adderall 10 mg Orally twice a day 1 tablet in the morning then one tablet around noon or 1 pm. 12h May, 28 days Active Albuterol Sulfate HFA 108 (90 Base) MCG/ACT Inhalation 4 times a day 2 puffs as needed 6h Aug, Not-Taking RESULTS No Results PROCEDURES Procedure Date Ordered Result Body Site LAB NOT BILLED BY [employer] June 07, 2017 Hemoglobin Test Send Out 0 dollar June 07, 2017 INSTRUCTIONS MEDICATIONS ADMINISTERED No Known Medications MEDICAL (GENERAL) HISTORY Type Description Date Medical History ADHD Medical History Asthma- allergy induced Medical History Seasonal allergies Hospitalization History labor and delivery x 1 2011 Hospitalization History labor and delivery 2018
--- NOTE | 2018-06-15 18:20 | NUR ---
PT AND MOTHER ADVISED OF PLAN OF CARE THAT DR. KAUR HAD FOR INCLUDING HEART TONES, STRAIGHT CATH FOR UA AND AMNIOTEST SWAB. PT DID NOT WANT A STRAIGHT CATH BUT WOULD ALLOW FOR HEART TONES.
--- NOTE | 2018-06-15 18:29 | NUR ---
PT STATES THAT SHE JUST WANTS TO LEAVE AND SEE HER DR TOMORROW.
[2018-06-15 18:31] VITALS: BP 128/67
== END 2018-06-15 18:31 | disposition left against medical advice (07) ==
LOC: EDUNIT# 17:10 → ER 17:12
DX: O26.892 Other specified pregnancy related conditions, second trimester (principal); R68.89 Other general symptoms and signs; Z3A.17 17 weeks gestation of pregnancy

== ENCOUNTER 2018-10-11 00:03 | Outpatient (CLI) | payer MEDICAID, OTHER ==
[~2018-10-11] VITALS: Ht 160 cm; Wt 69.5 kg
--- NOTE | 2018-10-11 00:08 | NUR ---
ROSEMARIE AGARWAL presented to unit via from ED, accompanied by S/O, with c/o CONTRACTIONS X2 HOURS. ROSEMARIE AGARWAL weighed, gowned, voided, and to bed. EFHM and TOCO applied, VS taken. ROSEMARIE AGARWAL oriented to bed controls, call light, TV, heat, and A/C controls.
[2018-10-11 00:15] VITALS: BP 135/78
[2018-10-11 00:19] LABS: BILIRUBIN,URINE NEGATIVE (NEGATIVE); CLARITY,URINE CLEAR; COLOR,URINE YELLOW; GLUCOSE, URINE (UA) NEGATIVE (NEGATIVE); KETONES,URINE NEGATIVE (NEGATIVE); LEUKOCYTE ESTERASE ,URINE 1+ (NEGATIVE); NITRITE,URINE NEGATIVE (NEGATIVE); PH,URINE 7 (5-9); PROTEIN,URINE NEGATIVE (NEGATIVE); UROBILINOGEN,URINE NORMAL (NORMAL)
--- NOTE | 2018-10-11 00:23 | NUR ---
dr. gillis called regarding pt's complaints of ctx's starting 2 hours ago rating pain 5/10. sve 3cm/70/-1. denies recent intercoarse, denies uti sx, denies bleeding or leaking. ctxing every 3-4min. Orders received.
--- NOTE | 2018-10-11 00:25 | NUR ---
Rn to room to discuss plan of care. Pt states she is willing to receive iv fluids but refuses the terb to stop ctx's. Pt states she wants to try the fluids first. Discussed with pt that her cervix could cont to dilate if the ctx's do not stop, which could result in delivering a infant. Pt states she has delivered early babies before at 35 and 37weeks. Discussed that delivering a 33.6 week is different than 35 weeks and there are risks included in that delivery here or possible transfer to another facility. Pt verbalized understanding of not received the terb. Discussed betamethasone with pt, pt states she would like to wait to receive anything other than the fluids. s.o. remains at bedside.
[2018-10-11 00:28] LABS: BACTERIA,URINE TRACE /HPF; WBC,URINE RARE /HPF
[2018-10-11] MEDS ORDERED: TERBUTALINE INJ 1 MG/ML (BRETHINE) AMP SC ONE (00:30)
[2018-10-11] MEDS ORDERED: LACTATED RINGERS 1,000 ML IV SCH (00:30)
[2018-10-11] MEDS ORDERED: SUFENTA 0.6MCG/ML BUPIVA 0.125 0 ML ONE (01:09)
[2018-10-11] MEDS ORDERED: D5 LR IV SOLUTION 1,000 ML IV ONE (01:30)
--- NOTE | 2018-10-11 01:33 | NUR ---
Dr. Castano called with ua results, sve and ctx pattern. discussed how pt refused terb. iv bolus infused. dr. kearns to discuss terb and beta with pt again.
--- NOTE | 2018-10-11 01:42 | NUR ---
Pt cont to refuse beta and terb and would like to be transferred to a higher level of care. Dr. Castano called and updated about pt's request and refusal. Discussed transfer of care with dr. Dr. Castano to come to see pt.
--- NOTE | 2018-10-11 01:55 | NUR ---
Dr. Vaughns here at bedside discussing care with pt. pt requesting transfer of care.
[2018-10-11 02:00] VITALS: BP 128/74
[2018-10-11] MEDS ORDERED: D5 LR IV SOLUTION 1,000 ML IV SCH (02:00)
--- NOTE | 2018-10-11 02:06 | NUR ---
Pt's mother here at bedside.
[2018-10-11] MEDS ORDERED: CLINDAMYCIN 900 MG/50 ML IVPB 50 ML IV ONE (02:15)
--- NOTE | 2018-10-11 02:18 | NUR ---
consent signed for transfer.
--- NOTE | 2018-10-11 02:19 | History & Physical-OB ---
OB - Chief Complaint & HPI Date/Time Date of Admission: 2018Date of Admission: Date seen by a Provider: Oct 11, 2018 Time Seen by a Provider: 02:10 Chief Complaint/History OB-Reason for Admission/Chief: Labor Hx : 4 Hx Para: 2 Expected Date of Delivery: Nov 23, 2018 Gestational Age in Weeks: 33 Gestational Age in Days: 6 Admission Nurse Assessment Rev: Yes Allergies and Home Medications Allergies Coded Allergies: Penicillins (Verified Allergy, Unknown, 10/11/18) Home Medications Vits W-Ca,Fe,Fa(<1MG) 1 Each Tablet, 1 EACH PO DAILY, (Reported) Patient Home Medication List Home Medication List Reviewed: Yes OB - History Hx of Present Care: Yes Ultrasounds: Normal mid trimester US Obstetrical Complications: None Medical Complications: None Information Induced Hypertension: No Maternal Gestational Diabetes: No Hemorrhage: No Obstetrical History Hx : 4 Hx Para: 2 Hx Total # of Abortions (Spona: 1 Hx Multiple Gestation: No Hx Ectopic : No Hx Stillbirth: No Hx Complication: No Hx Induced Hypertens: No Hx Maternal Gestational Diabet: No Hx Hemorrhage: No Delivery History Hx Blood Disorders: No Patient Past Medical History Denies any significant medical history Social History/Family History Recent Infectious Disease Expo: No Immunizations Tetanus Booster (TDap): Less than 5yrs OB - Admission Exam Physical Exam Vitals: Vital Signs 10/11/18 00:15 Temp 97.5 Pulse 107 Resp 20 B/P (MAP) 135/78 (97) O2 Delivery Room Air HEENT: NCAT Heart: Rhythm Normal Lungs: Clear Abdomen: Gravid Extremities: Normal Reflexes: Normal Cervical Dilatation: 4cm (via Nursing Staff) Effacement: 50% Station: -3 Membranes: Intact Heart Rate: 140's Accelerations: Accelerations Present Decelerations: No Decelerations Short Term Variability: Present Global Climate Change Analyst Variability: Average (6-25) Contractions on Admission: 6-10 Minutes Apart Intensity: Moderate Reinoso Scoring Tool (Modified) Dilation (cm): 3-4cm (2) Effacement (%): 31-51% (1) Descent/Station: -3 (0) Cervix Consistency: Medium(1) Cervix Position: Middle/Mid-Position (1) Labs Laboratory Tests Test 10/11/18 00:10 Range/Units Urine Color YELLOW Urine Clarity CLEAR Urine pH 7 5-9 Urine Specific [place] 1.005 L 1.016-1.022 Urine Protein NEGATIVE NEGATIVE Urine Glucose (UA) NEGATIVE NEGATIVE Urine Ketones NEGATIVE NEGATIVE Urine Nitrite NEGATIVE NEGATIVE Urine Bilirubin NEGATIVE NEGATIVE Urine Urobilinogen NORMAL NORMAL MG/DL Urine Leukocyte Esterase 1+ H NEGATIVE Urine RBC (Auto) NEGATIVE NEGATIVE Urine RBC NONE /HPF Urine WBC RARE /HPF Urine Squamous Epithelial Cells 2-5 /HPF Urine Crystals NONE /LPF Urine Bacteria TRACE /HPF Urine Casts NONE /LPF Urine Mucus NEGATIVE /LPF Urine Culture Indicated NO OB - Assessment/Plan/Diagnosis Assessment Assessment: IUP - Admission Dx Intrauterine at 33 6/7 weeks 2. Labor 3. History of Delivery Admission Status: Observation Plan Plan: Other (Ms. Cruz has refused the majority of our efforts to stop her labor, consequently we are transferring her to [facility]. She accepted IV fluids and IV antibiotics (Cleocin), but refused Terbutaline, Betamethasone, and Magnesium. This case was discussed with Dr. Borrero, and she accepted the transfer.) Discharge Diagnosis Diagnosis: Intrauterine at 33 6/7 weeks 2. Labor 3. History of Delivery JAGJIT PURVIS DO Oct 11, 2018 02:19
--- NOTE | 2018-10-11 02:27 | NUR ---
report called to irena thomas at [facility].
--- NOTE | 2018-10-11 02:36 | NUR ---
warm blanket given to pt per request. Pt states cont to feel ctx's. offered terb again to help with ctx's, pt cont to refuse medication.
[2018-10-11] MEDS ORDERED: BETAMETHASONE ACE/NA PHOS 6 MG/ML (CELESTONE SOLUSPAN) IM SCH (09:00)
== END 2018-10-11 03:06 | disposition designated cancer center or children's hospital (05) ==
LOC: LDRP 00:03 → WSo 00:03
PROVIDERS: ATTEND Obstetrics & Gynecology
DX: O60.03 Preterm labor without delivery, third trimester (principal); Z3A.33 33 weeks gestation of pregnancy
CPT/HCPCS: 81000; 96361; 96374; 99214